=== PATIENT | male | born 1945 | race Caucasian/White ===

== ENCOUNTER 2020-02-16 12:32 | Inpatient (IN) | payer OTHER, MEDICARE ==
[~2020-02-16] VITALS: Ht 188 cm; Wt 74.4 kg
[2020-02-16] VITALS (16 sets, daily range): BP systolic 113–166; BP diastolic 40–72
--- NOTE | ~2020-02-16 | HC ---
[facility] [place] [address] CONSULTATION Name: ELISE GRANT Room #: 203-P ADM IN M.R.#: [id number] Admission: 02/16/20 Attend Phys: Mike Mendieta MD Discharge: Date of : 45 Report #: [id number] THIS REPORT FOR: cc: [facility] - Family physician unknown FAM - Family physician unknown Michele Stubbs MD ~ CC: Mike Mendieta [facility] unknown Westley Moran Carol DATE OF SERVICE: 02/20/2020 HISTORY OF PRESENT ILLNESS: The patient is a 74-year-old male who was admitted with dysarthria, drooling, noted to have right-sided weakness. He underwent TPA. CT perfusion study did show evidence of a left frontoparietal acute CVA and he has been diagnosed with a large left hemispheric CVA. He has dense right hemiplegia and almost complete expressive aphasia. Neurology has been closely involved. He also was noted to have a non-ST elevation myocardial infarction with elevated troponin with Cardiology involved. He has been seen by speech therapy and has significant dysphagia and is on pureed diet with nectar thickened liquids. We are seeing him in rehabilitation medicine consultation. PAST MEDICAL HISTORY: History of sick sinus syndrome, status post permanent pacemaker, aortic stenosis, hypertension, hyperlipidemia, diabetes mellitus type 2. MEDICATIONS: Please see the MAR. ALLERGIES: No known drug allergies. SOCIAL HISTORY: Lives in a house with spouse, 2 steps in, did not utilize gait aids. is retired. There is family in the area. Bedroom is on the ground floor. REVIEW OF SYSTEMS: Somewhat difficult with his severe aphasia. No obvious chest pain, shortness of breath or abdominal discomfort. PHYSICAL EXAMINATION: GENERAL: This is a 74-year-old white male in no obvious distress. He has severe expressive aphasia, it appears to be more involved with expressive and he has better receptive. He does have nasal prong O2 in place, currently 4 liters. He has right facial droop. He has definite left gaze preference and was unable to look to the right past midline. He is able to follow some basic 1 step commands. He could give me a thumbs up with his left hand. He was able to shake hands with his left hand and he moved his left leg to command when I [facility] [address] [place] [address] CONSULTATION Name: ELISE GRANT Room #: 203-P [facility] IN M.R.#: [id number] Admission: 02/16/20 Attend Phys: Mike Mendieta MD Discharge: Date of : 45 Report #: [id number]. Appears to have functional range of motion and strength to the left upper and left lower extremity without obvious focal weakness. Right upper extremity reveals severe dense flaccid plegia. Right arm is currently elevated on a pillow. Right lower extremity dense plegia. Tone is decreased. ASSESSMENT: This is a 74-year-old white male with the following problems: 1. Large left hemispheric cerebrovascular accident with dense right flaccid hemiplegia. 2. Severe expressive greater than receptive aphasia. 3. Significant dysphagia, on pureed diet with nectar thickened liquids. 4. Sick sinus syndrome, status post permanent pacemaker. 5. Aortic stenosis. 6. Hypertension. 7. Hyperlipidemia. PLAN: Therapies are evaluating. We will need to see how he does in his therapies and see what his tolerance level is and go from there. He appears to be motivated to try in therapies and his is supportive and at the bedside. We will be glad to follow along with you regarding his rehab therapy needs. By: 1321 2348 Michele Stubbs MD /COLLIN
--- NOTE | ~2020-02-16 | EKG ---
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 : 1945 Requested By: Brii Sherman Order Number: [id number] MD: Measurements Intervals [place] Rate: 91 P: 71 MN: 166 QRS: -108 QRSD: 149 T: 75 QT: 391 QTc: 482 Interpretive Statements Sinus rhythm Right bundle branch block Probable inferior infarct, old Probable lateral infarct, old Compared to ECG 02/16/2020 12:53:45 Atrial-paced complex(es) or rhythm no longer present Inferior Q waves no longer present Q waves no longer present Myocardial infarct finding still present [email or web address] By: 4 4 Epiphany Epiphany, /[place]
--- NOTE | ~2020-02-16 | HC ---
[facility] [place] [address] CONSULTATION Name: ELISE GRANT Room #: 203-P [facility] IN M.R.#: [id number] Admission: 02/16/20 Attend Phys: Mike Mendieta MD Discharge: Date of : 45 Report #: [id number] THIS REPORT FOR: cc: [facility] - Family physician unknown [facility] - Family physician unknown Mila Rose MD ~ CC: Mike Mendieta [facility] unknown Westley Jung Dean Carol DATE OF SERVICE: 02/17/2020 ENDOCRINE CONSULTATION NOTE CONSULTING PHYSICIAN: Dr. Mendieta. REASON FOR CONSULTATION: Uncontrolled type 1 diabetes mellitus. HISTORY OF PRESENT ILLNESS: This is a 74-year-old male patient whose medical background is significantly noted for type 1 diabetes mellitus diagnosed over 60 years ago as well as CAD with a history of MA and CABG. The patient was at his usual state of health until the morning of his day of admission when he was noted to start drooling and then became aphasic. Shortly thereafter, the patient was brought to the ER by EMS where he developed right hemiparesis and expressive aphasia. Further investigation revealed evidence of a left hemispheric CVA and the patient received tPA therapy. However, further assessment showed that his CVA had expanded significantly and is very large at this point in time. Again, the patient has had a longstanding history of type 1 diabetes mellitus and has been treated with a [employer] insulin pump for many years as well as utilized [facility] continuous glucose monitor. The patient is unable to communicate with me due to the issue of aphasia and his was unable to provide specific insulin pump settings. She did indicate that the patient would have widely fluctuating blood glucose values between 40 and 200 mg/dL and that his most recent hemoglobin A1c was likely between 7 and 8%. However, it does not appear that the patient suffered any major hypoglycemic episodes or neuroglycopenia over the past few months at least. The patient is reported to have a history of cataract, but not diabetic retinopathy. Also, he has chronic kidney disease and diabetic peripheral neuropathy for which he uses gabapentin. Again, the patient is known to have a significant cardiac history and has undergone a CABG several years ago due to that reason. [address] [address] CONSULTATION Name: ELISE GRANT Room #: 203-P [facility] IN M.R.#: [id number] Admission: 02/16/20 Attend Phys: Mike Mendieta MD Discharge: Date of : 45 Report #: [id number] REVIEW OF SYSTEMS: CONSTITUTIONAL: No reported issues with fatigue, tiredness, fever, chills or body weight changes. HEENT: No reported issues with sore throat, sinus pain or ear drainage. PULMONARY: Negative for shortness of breath, cough or hemoptysis. CARDIAC: Negative for chest pain, palpitations, syncope or presyncope. GASTROINTESTINAL: Negative for abdominal pain, nausea, vomiting or changes in bowel movement frequency. NEUROLOGIC: Noted for right facial droop, right-sided weakness, expressive aphasia. No seizure activity or loss of consciousness. DERMATOLOGIC: Negative for rash, ulceration, discoloration or other major abnormalities. Otherwise, his review of systems is noncontributory other than those mentioned in the HPI. PAST MEDICAL HISTORY: 1. Type 1 diabetes mellitus diagnosed over 60 years. 2. Peripheral diabetic neuropathy. 3. Cataract. 4. Chronic kidney disease. 5. Hypertension. OUTPATIENT MEDICATIONS: The patient utilizes fast-acting insulin via his pump, uses gabapentin at an unknown dose. The patient's was unable to provide his medications in detail, otherwise. ALLERGIES: No known drug allergies. FAMILY HISTORY: Noncontributory. SOCIAL HISTORY: No reports of alcohol or tobacco use. The patient has 2 daughters. PHYSICAL EXAMINATION: GENERAL: male patient who is not in apparent pain or distress, but appears a bit agitated. VITAL SIGNS: Blood pressure is 122/50 mmHg, heart rate is 78 beats per minute, respirations 25 per minute, temperature is 38.4 degrees Celsius. CONSTITUTIONAL: The patient is lying supine in bed, appears a bit agitated, not in apparent pain, though. HEENT: Anicteric sclerae. Intact extraocular motions. NECK: Supple, without JVD, carotid bruits or lymphadenopathy. No thyromegaly. CHEST: Noted for moderate air entry bilaterally with scattered rales. [place] [address] CONSULTATION Name: ELISE GRANT Room #: 203-P ADM IN M.R.#: [id number] Admission: 02/16/20 Attend Phys: Mike Mendieta MD Discharge: Date of : 45 Report #: [id number] HEART: Regular rate and rhythm without murmurs or gallops. ABDOMEN: Soft, lax. No guarding. Active bowel sounds. EXTREMITIES: Lower extremity exam is negative for edema. NEUROLOGIC: Awake, alert, thrashing in bed, agitated, periodically attempts to sit up. He is immobile in the right upper extremity and lower extremity. PSYCHIATRIC: Not interactive, nonverbal. LABORATORY RESULTS: Blood glucose on arrival was 161, then moved to a high of 329 and then 301 mg/dL prior to this dictation. Sodium 135, potassium 5.1, chloride 101, CO2 of 19, anion gap 15, BUN 34, creatinine 1.4, yesterday was 1.1. AST 33, total bilirubin 0.5, calcium 9.1, magnesium 2.1, alkaline phosphatase 102, ALT 47, total protein 6.9, albumin 3.8, EGFR 50. Troponin 14.19. Total cholesterol 114, triglycerides 72, HDL 51, LDL 49. INR 1.0. White blood count 14.1, hemoglobin 12.8, hematocrit 39.3, platelets 164. TSH 1.064. Hemoglobin A1c was ordered and is pending. ASSESSMENT AND PLAN: 1. Type 1 diabetes mellitus. As noted above, the patient has a longstanding history of type 1 diabetes mellitus that is treated with continuous insulin delivery via insulin pump. Naturally, given the patient's current neurological state, he is unable to operate an insulin pump and therefore, this will be discontinued. Unfortunately, the usual insulin pump settings are not available to us at this point in time and therefore, I will initiate basal therapy utilizing the patient's weight of about 180 pounds and estimating basal insulin needs at 20 units. This will be offered in the form of Lantus insulin 10 units b.i.d. This will also be supported by Humalog supplemental scale low intensity to help the patient maintain blood glucose control between 140 and 180 mg/dL. Once his nutritional needs are assessed and a form of feeding is initiated, those nutritional needs will be calculated as well. Blood glucose monitoring will commence a.c. and at bedtime. 2. Cerebrovascular accident. As noted above, the patient has suffered a major CVA with a large left hemispheric CVA, which is felt to predict a severely compromised life quality by the Neurology service. Further management to followup is as per the Neurology Service. 3. Cardiovascular disease, coronary artery disease. The patient has significant history of coronary artery disease and has had a CABG done a few years ago. His troponin is significantly elevated. Cardiology is consulted for further evaluation. I certainly appreciate this consultation by Dr. Mendieta. By: 1337 1725 Mila Rose MD /nt
[2020-02-16 12:50] LABS: ABSOLUTE NEUTROPHILS 6.2 thou/uL (1.4-8.2); BASOPHILS 0.6 % (0.0-2.0); EOSINOPHILS 1.9 % (0.0-3.0); HEMATOCRIT 39.6 % (42.0-52.0); HEMOGLOBIN 13.2 gm/dL (14.0-18.0); LYMPHOCYTES 16.2 % (24.0-44.0); MCHC 33.2 g/dL (28.0-37.0); MCV 96.3 fL (80.0-100.0); MONOCYTES 9.3 % (1.0-8.0); PLATELET COUNT 168 thou/uL (150-400); RBC 4.12 mil/uL (4.50-6.00); RDW 15.4 % (10.5-14.5); WBC 8.6 thou/uL (4.0-11.0)
[2020-02-16 13:02] LABS: APTT 28.1 Seconds (24.5-32.8); PROTIME 10.7 Seconds (9.3-11.4)
[2020-02-16 13:37] LABS: ANION GAP 11 mmol/L (7-16); BUN 28 mg/dL (7-18); CALCIUM 9.3 mg/dL (8.5-10.1); CHLORIDE 104 mmol/L (98-107); CO2 24 mmol/L (21-32); CREATININE 1.1 mg/dL (0.7-1.3); GLUCOSE 130 mg/dL (74-106); POTASSIUM 4.9 mmol/L (3.5-5.1); SODIUM 139 mmol/L (136-145)
[2020-02-16 13:43] LABS: ALBUMIN 3.8 g/dL (3.4-5.0); MAGNESIUM 2.1 mg/dL (1.8-2.4); SGOT 33 U/L (15-37); SGPT 47 U/L (30-65); TOTAL BILIRUBIN 0.5 mg/dL (0.2-1.0); TOTAL PROTEIN 6.9 g/dL (6.4-8.2)
[2020-02-16 14:03] LABS: TROPONIN-I 7.72 ng/mL (<0.06)
[2020-02-16 14:13] LABS: URINE BILIRUBIN NEGATIVE (Negative); URINE BLOOD NEGATIVE (Negative); URINE CLARITY CLEAR; URINE COLOR YELLOW; URINE GLUCOSE-RANDOM* NEGATIVE (Negative); URINE KETONES NEGATIVE (Negative); URINE LEUKOCYTES-REFLEX NEGATIVE (Negative); URINE NITRITE-REFLEX NEGATIVE (Negative); URINE PROTEIN (DIPSTICK) NEGATIVE (Negative); URINE SPECIFIC GRAVITY 1.015 (1.005-1.035); URINE UROBILINOGEN 0.2 E.U./dl (0.2-1.0)
[2020-02-16 14:28] LABS: AMP/METHAMP Negative (Negative); BARBITURATES Negative (Negative); BENZODIAZEPINES Negative (Negative); COCAINE Negative (Negative); METHADONE Negative (Negative); OPIATES Negative (Negative); PCP Negative (Negative)
--- NOTE | 2020-02-16 15:35 | 2DMMODE ---
[address] [address] 2 D/M-MODE ECHOCARDIOGRAM Name: ELISE GRANT Room #: REG M.Roberta.#: [id number] Admission: 02/16/20 Attend Phys: Discharge: Date of : 45 Report #: [id number] THIS REPORT FOR: cc: FAM - Family physician unknown FAM - Family physician unknown Westley Jung MD [facility] ~ APPROVED REPORT Study performed: 02/16/2020 14:28:59 EXAM: Comprehensive 2D, Doppler, and color-flow Echocardiogram Patient Location: Room #: 4 Status: stat BSA: 2.09 HR: 74 bpm BP: 162/67 mmHg Rhythm: Pacemaker Other Information Study Quality: Adequate Indications Aortic Valve Disease Mitral Valve Disease CVA/TIA Hypertension/HDD Echo Enhancing Agent Indication: Rule out Shunt Agent(s) / Amount(s) Used: Agitated Saline 7 cc 2D Dimensions IVC: 20.00 mm Volumes Left Atrial Volume (Systole) LA ESV Index: 35.00 mL/m2 Tricuspid Valve PA Pressure: 65.00 mmHg Left Ventricle The left ventricle is normal size. There is MILD hypokinesis in the [address] [address] 2 D/M-MODE ECHOCARDIOGRAM Name: ELISE GRANT Room #: REG TY Mai#: [id number] Admission: 02/16/20 Attend Phys: Discharge: Date of : 45 Report #: [id number] inferior wall. There is normal left ventricular wall thickness. There is normal left ventricular wall thickness. The left ventricular ejection fraction is within the normal range. LVEF is 50%. The left ventricular diastolic function is abnormal. Right Ventricle The right ventricle is normal size. The right ventricular systolic function is normal. Pacemaker lead is present in the right ventricle. Atria Left atrium is dilated. Interatrial septum is intact without evidence of ASD or PFO. Right atrium is at the upper limits of normal. Pacemaker lead is present in the right atrium. Aortic Valve Bioprosthetic aortic valve is present. Trace aortic regurgitation. There is no aortic valvular stenosis. Mitral Valve The mitral valve is normal in structure. Mild to moderate mitral regurgitation. No evidence of mitral valve stenosis. Tricuspid Valve The tricuspid valve is normal in structure. There is mild tricuspid regurgitation. Estimated PAP 65 mmHg. There is moderate pulmonary hypertension. Pulmonic Valve The pulmonary valve is normal in structure. Trace pulmonic regurgitation. Great Vessels The aortic root is normal in size. IVC is dilated and collapses >50% with inspiration. Pericardium There is no pericardial effusion. <Conclusion> The left ventricle is normal size. There is MILD hypokinesis in the inferior wall. LVEF is 50%. The left ventricular diastolic function is abnormal. The right ventricle is normal size. Pacemaker lead is present in the right ventricle. Left atrium is dilated. [facility] [address] [place] [address] 2 D/M-MODE ECHOCARDIOGRAM Name: ELISE GRANT Room #: REG TY FraserYolie#: [id number] Admission: 02/16/20 Attend Phys: Discharge: Date of : 45 Report #: [id number] Right atrium is at the upper limits of normal. Pacemaker lead is present in the right atrium. Bioprosthetic aortic valve is present. Trace aortic regurgitation. Mild to moderate mitral regurgitation. There is mild tricuspid regurgitation. Estimated PAP 65 mmHg. There is moderate pulmonary hypertension. The aortic root is normal in size. There is no pericardial effusion. <ELECTRONICALLY SIGNED> By: Westley Jung MD, FACC 02/16/20 1535 1535 1535 Westley Jung MD, FACC /INF
[2020-02-16 16:04] LABS: CHOLESTEROL 114 mg/dL (<200); HDL CHOLESTEROL 51 mg/dL (>40); LDL CHOLESTEROL 49 mg/dL (<100); TC:HDL 2.2 Ratio (Not establshd); TRIGLYCERIDE 72 mg/dL (<150); VLDL 14 mg/dL (<40)
--- NOTE | 2020-02-16 20:16 | NUR ---
1739-ADMITTED FROM E.R. VIA STRETCHER. DTR SAW PT BRIEFLY & THEN LEFT. WAS NOT PRESENT.--VW
[2020-02-17] VITALS (23 sets, daily range): BP systolic 106–147; BP diastolic 46–66
--- NOTE | 2020-02-17 06:41 | NUR ---
At the start of the shift, pt's NIH score was 5, he was alert, able to nod to yes/no questions, and move all extremities. By midnight, he hadn't rested well, his right side wasn't as strong and at approx 0200, pt became tachycardic, other vitals were WNL. Dr Medina was in to see pt, and it was then noted that pt's right side was flaccid. Pt was taken to CT for follow up scan and it was noted that he stroke had progressed. The family was notified by the doctor, to consider changing code status and making him comfort care. Family will be here at 0900 to discuss this with Dr. Medina. Pt has been VERY restless, moving his left side, putting that left leg on the siderail. He remains aphasic, and is not following commands as well as he had. A nickerson was placed, with 2 liters of urine voided, lasix was given and his lung sounds did improve.
[2020-02-17 06:52] LABS: HEMATOCRIT 39.3 % (42.0-52.0); HEMOGLOBIN 12.8 gm/dL (14.0-18.0); MCH 32.1 pg (26.0-34.0); MCHC 32.5 g/dL (28.0-37.0); MCV 98.7 fL (80.0-100.0); RBC 3.98 mil/uL (4.50-6.00); RDW 15.2 % (10.5-14.5); WBC 14.1 thou/uL (4.0-11.0)
[2020-02-17 07:04] LABS: CALCIUM 9.1 mg/dL (8.5-10.1); CREATININE 1.4 mg/dL (0.7-1.3); POTASSIUM 5.1 mmol/L (3.5-5.1)
--- NOTE | 2020-02-17 08:00 | NUR ---
ASSUMED CARE FROM JORDI FARFAN. STROKE SCALE 18, DOES NOT RECONGNIZE RIGHT SIDE OF BODY, APHASIC. RIGHT SIDE IS STIFF AND RIGID WHEN TURNING. INCONTIENT OF STOOL. MOVED TO DIFFERNT BED MATTRESS WILL NOT INFLATE.
--- NOTE | 2020-02-17 09:45 | NUR ---
DR CHRISTIANSON IN TO SPEAK WITH CONCERNING THE EXTENT OF THE PATIENT'S STROKE AFTER SEEING THE PATIENT AND REVIEWING THE CT RESULTS.
--- NOTE | 2020-02-17 09:50 | NUR ---
chart review. cm unable to visit with pt rt condition, at bedside side and tearful. report from bedside nurse. pt came in through ed with code stroke. pt was home alone and he call his but could not speak, she returned home to check on him and called ems. neuro in visiting with at bedside. will cont following as needed for dc needs. per chart pt independent prior to hospital. no anticpated dc over weekend.
--- NOTE | 2020-02-17 10:30 | NUR ---
DR LOZA IN TO SPEAK WITH CONCERNING POC AND POTENTIAL OUTCOMES. PATIENT CONTINUES TO NEGLECT THE RIGHT SIDE, EXPRESSIVE APHASIA, WILL FOLLOW SIMPLE COMMANDS.
--- NOTE | 2020-02-17 14:26 | NUR ---
monitoring coordinator to see patient and family. pt awake however aphasic and right sided flaccidity noted. patient doesn't follow commands and appears restless. tearful at bedside and questioning why the medication (tPa) didn't work. I explained that even though it is the only FDA approved medication for stroke sometimes it is not effective. I also provided a stroke booklet explaining the different types of strokes and risk factors even though this patient has a poor prognosis reported. I will continue to follow and offer support to the family.
--- NOTE | 2020-02-17 14:43 | NUR ---
DR INTERIANO NOTIFIED THAT THE PATIENT'S WANTS TO RESEND THE DNR AFTER SPEAKING WITH THE DAUGHTERS.
--- NOTE | 2020-02-17 16:10 | EKG ---
[facility] [place] [address] ELECTROCARDIOGRAM REPORT Name: EILSE GRANT Room #: 251-P ADM IN M.R.#: [id number] Admission: 02/16/20 Attend Phys: Mike Mendieta MD Discharge: Date of : 45 Report #: [id number] THIS REPORT FOR: cc: FAM - Family physician unknown FAM - Family physician unknown Jeremy Humphreys MD [facility] ~ THIS REPORT FOR: //name// [facility] ED Test Date: 2020-02-16 Test Time: 12:53:45 Pat Name: ELISE GRANT Department: Room: Formerly named [facility] Gender: M Community 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 Director: [place] : 1945 Requested By: Mina De La Torre Order Number: [id number] MD: Jeremy Humphreys Measurements Intervals [place] Rate: 64 P: 62 [place]: 194 QRS: -103 QRSD: 159 T: 66 QT: 438 QTc: 452 Interpretive Statements Sinus rhythm with ventricular pacing No previous ECG available for comparison Electronically Signed On 02-17-2020 16:09:58 CDT by Jeremy Humphreys [email or web address] <ELECTRONICALLY SIGNED> By: Jeremy Humphreys MD, FAC 02/17/20 1609 1253 52 Jeremy Humphreys MD, [facility] /EPI
--- NOTE | 2020-02-17 16:29 | EKG ---
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 : 1945 Requested By: Westley Jung Order Number: [id number] MD: Jeremy Humphreys Measurements Intervals [place] Rate: 91 P: 71 [place]: 166 QRS: -108 QRSD: 149 T: 75 QT: 391 QTc: 482 Interpretive Statements Sinus rhythm with ventricular pacing Right bundle branch block Compared to ECG 02/16/2020 12:53:45 No significant change was found Electronically Signed On 02-17-2020 16:28:49 CDT by Jeremy Humphreys [email or web address] <ELECTRONICALLY SIGNED> By: Jeremy Humphreys MD, [facility] 02/17/20 1628 4 4 Jeremy Humphreys MD, [facility] /EPI
--- NOTE | 2020-02-17 17:00 | NUR ---
INFORMED OF NEW ROOM NUMBER OF 203. SHE TOOK HIS BAG OF BELONGINGS WITH HER.
--- NOTE | 2020-02-17 17:04 | NUR ---
PATIENT RESTLESS, SWINGING LEFT LEG OUT OF THE BED, PULLING OFF O2. ATTEMPT TO REORIENT. APPEARS TO SLEEP BEST WITH FEET DOWN HE SPLEEPS SITTING UP ON THE SOFA AT HOME. MONITOR SHOWING SR WITH BBB AND OCC PVC'S AND INTEMITTENT A PACED RHYTHM. VSS. O2 SAT IN THE LOWER TO MID 90'S ON 3L/NC. RESP LESS LABORED. ADEQUATE URINE OUTPUT PER MCCLELLAN.
--- NOTE | 2020-02-17 18:58 | NUR ---
PATIENT TRANSFERRED TO 203 PER BED WITH BELONGINGS AND O2. REPORT GIVEN TO JULIETA FARFAN. INSULIN GIVEN AC DINNER.
--- NOTE | 2020-02-17 19:57 | NUR ---
PATIENT TRANSFERRED TO [address] [place] [address] W/C WITH BELONGINGS. REPORT GIVEN TO LORIE FARFAN.
--- NOTE | 2020-02-17 22:59 | HC ---
[facility] [place] [address] CONSULTATION Name: ELISE GRANT Room #: 203-P ADM IN M.R.#: [id number] Admission: 02/16/20 Attend Phys: Mike Mendieta MD Discharge: Date of : 45 Report #: [id number] THIS REPORT FOR: cc: FAM - Family physician unknown FAM - Family physician unknown Dean Medina MD ~ CC: Mike Mendieta [facility] unknown Westley Jung Dean Medina DATE OF SERVICE: 02/16/2020 HISTORY OF PRESENT ILLNESS: This is a 74-year-old male patient who was evaluated by me for the possibility of seizure. I got a first call from Dr. De La Torre from the Emergency Room physician that the patient was aphasic. His last known well was about 9:45. Around 12:20, he called his and she was not able to understand him. The patient came to the hospital in TPA window. I asked the Emergency Room physician, Dr. De La Torre to start the TPA and then quickly take him down for CT stroke protocol. That was done. Dr. Ledbetter called Dr. De La Torre and indicated that there is no retrievable clot. I asked the radiologist, Dr. Ledbetter to review the films with me to see if there is any retrievable clot. He indicated that there is no retrievable thrombus. His official report indicated the same thing that CT ute of [place] revealed only normal variation. The patient did have penumbra. I was concerned with this patient because the patient has pretty marked aphasia. He is neither able to write and nor able to speak anything. His comprehension looks intact. This caused pretty significant compromise of the quality of the life and therefore I wanted to see if there is anything else which can be done. I wanted to do an MRI of the brain and MRA of the head. This is to look at the vasculature by some alternate testing. Unfortunately, this patient has a pacemaker. They do not know if the pacemaker was compatible with MRI or not. We tried to find out, but looks like pacemaker is compatible, but MRI indicated that the earliest they can do MRI by their protocol is tomorrow. This is because they have to contact their boat loader helper and they have to get the company rep here. This is the protocol they need to follow. Therefore, the earliest MRI and MRA can be done will be tomorrow. I discussed with them that will not do any good because the window to treat him will pass by that time. They indicated that there is no way that MRI and MRA can be done today. Therefore, I got the patient's CT angiogram reviewed by other radiologist, Dr. Owen and her opinion was same that there is no retrievable thrombus. This patient has dense aphasia and as I mentioned I am very concerned with it and therefore I called [facility] stroke team. I uploaded the images to the cloud. I asked them to review it and see if they think there is any retrievable thrombus. They also said the same thing that there is no retrievable thrombus. In these circumstances, nothing much can be done. I talked to Dr. Jung, his boat loader helper and his troponin is high. He is going [address] [place] [address] CONSULTATION Name: ELISE GRANT Room #: 203-P ADM IN M.R.#: [id number] Admission: 02/16/20 Attend Phys: Mike Mendieta MD Discharge: Date of : 45 Report #: [id number] to work him up. I discussed with him that most likely it is an embolic event. So, we will await workup. The patient received the full dose of TPA. We gave him some fluid. Unfortunately, he has no reactive hypertension, but after giving him fluid his blood pressure has gone up to about 168, which is better than before. We would like to keep his blood pressure high until it goes to about 180, then we need to cut back the fluid or give him some medications. Dr. Jung does not believe that there is any problem with the fluid in this patient, which can throw him in congestive heart failure. REVIEW OF SYSTEMS: Negative for any stroke and the patient was pretty functional before. He does have pretty significant cardiac issues in the past. He has a pacemaker. 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 This patient as per Cardiology record had 1 episode of atrial fibrillation in September. The patient is not anticoagulated according to the family and therefore he was given TPA. He is on aspirin 81 mg p.o. daily. PAST MEDICAL HISTORY: Negative for stroke. SOCIAL HISTORY: He has a prior history of smoking, but has not smoked any for a while. PHYSICAL EXAMINATION: The patient's examination indicate that he can follow simple commands, but he has no speech output. He could not write. I could not tell about hemianopsia in this patient, but the patient has a right facial palsy. His right side is weaker than the left. I cannot tell about the position sense or sensation because of the aphasia. I could not look at the fundus. Clinically, he does not appear to be in atrial fibrillation. His blood pressure now is 168/71, respirations 24, pulse is 69. His troponin is 7. IMPRESSION: Left hemispheric cerebrovascular accident. It is concerning that the patient has pretty significant aphasia and aphasia is the one, which cause significant disability and frustration and that is why I was very concerned. We gave him TPA, but I got 3 opinions as summarized above to see if any clot retrieval or anything else can be done and they all indicated that there is no clot retrieval, which can be done or anything else can be done except for systemic management. We should follow the TPA protocol. He should not receive any aspirin or Plavix for 24 hours. After that, we will await the cardiology evaluation. If Cardiology feels that he needs to be anticoagulated, then he can be anticoagulated. We might be able to do MRI tomorrow, but that will not change any treatment. We may even repeat the CT scan tomorrow rather than MRI because I am reasonably confident that the stroke will show up on the CT and it is unlikely to change any treatment. [address] [address] CONSULTATION Name: ELISE GRANT Room #: 203-P ADM IN M.R.#: [id number] Admission: 02/16/20 Attend Phys: Mike Mendieta MD Discharge: Date of : 45 Report #: [id number] I called the patient's son-in-law whom I know, Dr. Clinton. He is a family practitioner. I have known him for a long time. I updated him on the presentation history and what we have done so far. We do not have any neurosurgical backup today and I discussed that with him and I also discussed all their options with him as well as the family including if they want to stay in this hospital or want to go to another hospital or any other option or opinion they want to do. The family wants to keep the patient here and basically follow the above plan, which I summarized above. However, I discussed with them extensively all I have done so far including getting [address] angio as summarized and given them all their options including going to the hospital of their choice and physician of their choice and they would like to follow the above plan and keep him here. Ultimately, I think we need to see what we can do to prevent another stroke from happening. That will depend upon cardiology evaluation. I will do another CT scan after 24 hours. If Cardiology want him to start on anticoagulation it probably can be done, but only after an interval. That interval will vary from 3-7 days depending upon the extent of the stroke. If he does not go on anticoagulation he will be on dual antiplatelet therapy. We will also await the workup of high troponin. More than 70 minutes of time was spent taking care of this patient today and majority of that time was spent counseling the family and coordinating his care and talking to multiple health resident care technician as summarized. Thank you very much. <ELECTRONICALLY SIGNED> By: Dean Medina MD 02/17/20 2259 [id number] Dean Medina MD /nt
[2020-02-17 23:06] LABS: GLYCOHEMOGLOBIN (HGB A1C) 7.9 % (4.8-5.6)
[2020-02-18 00:23] VITALS: BP 115/61
--- NOTE | 2020-02-18 03:57 | NUR ---
ASSUMED PT CARE 1900. POST CVA, AND NON-RESPONSIVE. OVERNIGHT, PT BECOMES INCREASING AGITATED AND RESTLESS. MORPHINE ADMINISTERED TO PT WHICH DOSE SEEM TO HELP WITH AGITATION AND RESTLESSNESS. ASSESSMENT COMPLETED AND DOCUMENTED. FALL PRECAUTION IN PLACE. CONTINUE TO MONITOR PT. NO FURTHER NEEDS AT THIS TIME
[2020-02-18 04:00] VITALS: BP 146/56
[2020-02-18 07:25] VITALS: BP 151/72
[2020-02-18 07:51] LABS: ABSOLUTE NEUTROPHILS 11.3 thou/uL (1.4-8.2); BASOPHILS 0.2 % (0.0-2.0); HEMOGLOBIN 12.2 gm/dL (14.0-18.0); LYMPHOCYTES 8.5 % (24.0-44.0); MCH 31.5 pg (26.0-34.0); MCV 98.4 fL (80.0-100.0); MONOCYTES 11.1 % (1.0-8.0); PLATELET COUNT 142 thou/uL (150-400); POLYS 80.2 % (36.0-66.0); RBC 3.86 mil/uL (4.50-6.00); RDW 15.2 % (10.5-14.5); WBC 14.1 thou/uL (4.0-11.0)
[2020-02-18 08:06] LABS: CALCIUM 8.8 mg/dL (8.5-10.1); CREATININE 1.3 mg/dL (0.7-1.3); MAGNESIUM 2.2 mg/dL (1.8-2.4); PHOSPHORUS 3.3 mg/dL (2.5-4.9)
[2020-02-18 08:20] VITALS: BP 151/72
[2020-02-18 12:00] VITALS: BP 151/72
--- NOTE | 2020-02-18 13:05 | NUR ---
CHART INDICATES THAT Pt IS NOW ON PALLIATIVE/COMFORT CARE. THEREFORE, O.T. EVALUATION IN ACUTE CARE SETTING IS NOT APPROPRIATE.
[2020-02-18 16:00] VITALS: BP 151/72
--- NOTE | 2020-02-18 18:53 | NUR ---
PT CARE ASSUMED AT 0700. ASSESSMENTS CHATED. MEDICATIONS CHARTED. PT PLACED ON DNR AND COMFORT CARE. MULTIPLE FAMILY MEMBERS ALLOWED TO VISIT PER ADMINISTRATION; DR ELLIS AWARE.
[2020-02-19 01:30] VITALS: BP 139/63
[2020-02-19 05:14] LABS: HEMOGLOBIN 12.2 gm/dL (14.0-18.0); MCH 31.3 pg (26.0-34.0); RBC 3.88 mil/uL (4.50-6.00); RDW 15.1 % (10.5-14.5); WBC 12.9 thou/uL (4.0-11.0)
[2020-02-19 05:15] LABS: CALCIUM 8.8 mg/dL (8.5-10.1); CREATININE 1.1 mg/dL (0.7-1.3); POTASSIUM 4.5 mmol/L (3.5-5.1)
--- NOTE | 2020-02-19 06:19 | NUR ---
ASSUME CARE 1900. VITALS STABLE. PT EXTREMELY APHASIC BUT FOLLOWS INSTRUCTIONS. SQUEEZES MY FINGERS,RAISES HIS LEFT LEG, TRIES TO TURN, MAKE A THUMBS UP ON COMMAND. PT USES LEFT HAND TO HOLD ON TO NURSE, AND SEEMS TO WANT TO COMMUNICATE NEEDS BUT CANNOT. DIFFICULT TO ASSESS LOC BUT CAN STATE THAT PT SEEMS TO UNDERSTAND AND DOES FOLLOW COMMANDS. ASSESSMENT CHARTED. PROGRESSING WITH POC. PLAN IS CONFORT CARE FOR PT PER FAMILY. WILL CONTINUE TO MONITOR AND FOLLOW WITH POC
[2020-02-19 07:25] VITALS: BP 149/74
[2020-02-19 07:45] VITALS: BP 149/74
[2020-02-19 15:45] VITALS: BP 149/74
[2020-02-19 19:10] VITALS: BP 158/65
--- NOTE | 2020-02-19 19:11 | NUR ---
PT CARE ASSUMED AT 0700. ASSESSMENT CHARTED. MEDICATION CHARTED. PT OFF OF COMFORT CARE PER DR ROME. FAMILY WANTS FULL CARE. PT REMAINS ON DNR CODE STATUS FOR NOW. PT EATS BETTER OFF OF THE LEFT SIDE OF HIS MOUTH. PER DR LATRICIA DOMINGUEZ AT 5 UNITS AT 1715.
[2020-02-20 03:30] VITALS: BP 144/71
[2020-02-20 05:21] LABS: ALBUMIN 2.6 g/dL (3.4-5.0); CREATININE 1.1 mg/dL (0.7-1.3); MAGNESIUM 2.2 mg/dL (1.8-2.4); PHOSPHORUS 2.8 mg/dL (2.5-4.9); TOTAL BILIRUBIN 1.1 mg/dL (0.2-1.0); TOTAL PROTEIN 6.8 g/dL (6.4-8.2)
[2020-02-20 05:39] LABS: ABSOLUTE NEUTROPHILS 7.8 thou/uL (1.4-8.2); BASOPHILS 0.4 % (0.0-2.0); EOSINOPHILS 0.2 % (0.0-3.0); HEMOGLOBIN 12.1 gm/dL (14.0-18.0); LYMPHOCYTES 10.1 % (24.0-44.0); MCH 31.8 pg (26.0-34.0); MCHC 32.8 g/dL (28.0-37.0); MCV 97.1 fL (80.0-100.0); PLATELET COUNT 148 thou/uL (150-400); POLYS 80.3 % (36.0-66.0); RBC 3.81 mil/uL (4.50-6.00); RDW 15.3 % (10.5-14.5); WBC 9.7 thou/uL (4.0-11.0)
[2020-02-20 07:30] VITALS: BP 156/81
--- NOTE | 2020-02-20 08:37 | NUR ---
PT RESTING QUIETLY IN ROOM, USING CALL LIGHT TO TURN LIGHT ON AND OFF AND TV CONTROLS, R HEMIPARESIS, TURN NEEDED, NO C/O PAIN, REQUESTING FREQUENT LIQUIDS NECTAR THICK, IV INFUSING NS AT 50ML/HR, ABLE TO COMUNICATE BY SHAKING HEAD YES ABD NO, REPORT GIVEN TO NEXT SHIFT TO CON'T PPOC.
--- NOTE | 2020-02-20 10:02 | NUR ---
Patients face sheet not updated. Sp with in room. Copied insurance cards and rec address of home. Faxed to registration. tearful regarding patients disposition. Discussed post acute care. concerned patient will not tolerate 3 hours of theraoy for acute rehab and does not want skilled care. Casemgt following.
[2020-02-20 11:25] VITALS: BP 124/64
--- NOTE | 2020-02-20 13:42 | NUR ---
Assess due to low kary score of 7. Admit due to large CVA, aphasia, dysphagia. Requires modified solids and liquids per ST. Long hx DMI > 60yrs and had insulin pump. Endo following, dc'd off pump. Unknown wt hx. PO intake has been poor less than 50%. Already receives ensure pudding on puree trays, will add supplement of magic cup or ensure pudding each meal. Low nutrition risk at this time with interventions in place, but need to continue to follow ability to take oral intake adequately given large CVA
[2020-02-20 15:40] VITALS: BP 136/73
--- NOTE | 2020-02-20 16:02 | NUR ---
[facility] CONSULT RECEIVED FOR Pt. Pt SEEN BY DR. STORY. Pt CAN ADMIT TO 5N REHAB WHEN MEDICALLY READY FOR D/C. THANK YOU FOR THIS REFERRAL.
--- NOTE | 2020-02-20 18:10 | NUR ---
RECEIVED PT'S CARE AROUND 0730; PT. ON BED; ALERT; AWAKE; DURING AM ASSESSMENT PT. DRINKING MILK WITH BY HIMSELF; EDUCATED ABOUT DRINKING SMALL SIPS; ALERT TO PERSON; NEURO ASSESSMENT PERFORMED; NO CHANGES; EDUCATED ABOUT USING TUMBS UP OR DOWN FOR YES OR NO; REMAINED; ABLE TO EAT BREAKFAST; TOLERATED WELL; MEDICATION CRUSH; EDUCATED ABOUT HAVING SMALL SIPS AT A TIME; ST NOTIFIED; BS ELEVATED; DR. IRVIN ON VACATION; HOSPITALIST NOTIFIED; NO NEW ORDERS; UP TO THE CHAIR WITH PT.; PER PT. REPORT PT. TOLERATED IT WELL; BACK TO BED CLOSE TO 1700 BY PT; AT THE BED SIDE; EDUCATED ABOUT VISITOR REGULAR POLICIES; NOT ON HOSPICE; ST. UNDERSTANDING; TURN FROM SIDE TO SIDE THROUGH THE DAY & AFTERNOON; GOOD APPETITE; PER DR. AB HELTON TO D/C MCCLELLAN; D/C MCCLELLAN AT 1515; AFTER TWO HOURS PT. TRYING TO VOID, NOT SUCCESFUL; BLADDER SCANNER SHOWED 112 ML; PHYSICIAN NOTIFIED; ORDERS ON PLACED; MONITORING; WILL PASS ON REPORT; ASSESSMENT CHARGED; FOLLOWING POC; WILL PASS ON REPORT;
[2020-02-20 21:40] VITALS: BP 170/90
[2020-02-21 00:15] VITALS: BP 141/78
[2020-02-21 02:44] VITALS: BP 151/79; BP 515/79
--- NOTE | 2020-02-21 06:40 | NUR ---
FREQUENT SOFT STOOLS THRU THE NOC NEEDED SEVERAL HEAD TO TOE BATHS AND CLEANED UP ALSO INCONT OF URINE, MAKES PT ANXIOUSE, AND SETS THE BED ALARM OFF, HR UP TO 130'S NOT SUSTAINED, 6L NC WHILE SLEEPING, VSS, REPOSITIONED AND OFFERED NECTAR THICK WATER FREQUENTLY, PT RESTING INBETWEEN BOUGHTS OF INCON'T, WILL CON'T TO MONITOR PER PPOC.
[2020-02-21 07:40] VITALS: BP 151/79
[2020-02-21 08:27] LABS: HEMATOCRIT 37.1 % (42.0-52.0); HEMOGLOBIN 12.2 gm/dL (14.0-18.0); MCH 32.3 pg (26.0-34.0); RBC 3.78 mil/uL (4.50-6.00); RDW 15.6 % (10.5-14.5)
[2020-02-21 08:33] LABS: CALCIUM 9.2 mg/dL (8.5-10.1); CREATININE 1.3 mg/dL (0.7-1.3); MAGNESIUM 2.2 mg/dL (1.8-2.4); POTASSIUM 4.2 mmol/L (3.5-5.1)
--- NOTE | 2020-02-21 08:56 | EKG ---
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 : 1945 Requested By: Brii Sherman Order Number: [id number] MD: Jeremy Humphreys Measurements Intervals [place] Rate: 110 P: 91 MA: 159 QRS: -148 QRSD: 145 T: 66 QT: 343 QTc: 465 Interpretive Statements Sinus tachycardia with ventricular pacing Right bundle branch block Compared to ECG 02/17/2020 08:15:01 No significant change was found Electronically Signed On 02-21-2020 8:56:33 CDT by Jeremy Humphreys [email or web address] <ELECTRONICALLY SIGNED> By: Jeremy Humphreys MD, [facility] 02/21/20 0856 9 Jeremy Humphreys MD, [facility] /EPI
--- NOTE | 2020-02-21 09:32 | 2DMMODE ---
[facility] Kayla Mart[address]nez [employer] [place] [address] 2 D/M-MODE ECHOCARDIOGRAM Name: ELISE GRANT Room #: 203-P ADM IN M.R.#: [id number] Admission: 02/16/20 Attend Phys: Mike Mendieta MD Discharge: Date of : 45 Report #: [id number] THIS REPORT FOR: cc: FAM - Family physician unknown FAM - Family physician unknown Moisés Sandoval MD ~ APPROVED REPORT Study performed: 02/21/2020 08:50:08 EXAM: Limited 2D, Doppler, and color-flow Echocardiogram Patient Location: Bedside Room #: 203 Status: routine BSA: 2.03 HR: 110 bpm BP: 151/79 mmHg Rhythm: Paced. frequent PVCs Other Information Study Quality: Adequate Technically limited study due to no patient cooperation, heavy breathing. Indications Limited follow up echo for EKG changes. NSTEMI, history of CABG, PPM, AVR. 2D Dimensions IVSd: 11.32 (7-11mm) LVDd: 52.97 mm PWd: 9.15 (7-11mm) LVDs: 47.17 (25-40mm) Tricuspid Valve TR Peak Mani.: 3.45 m/s RAP Estimate: 10.00 mmHg TR Peak Gr.: 47.66 mmHg PA Pressure: 58.00 mmHg Left Ventricle The left ventricle is normal size. Basilar inferior posterior hypokinesis at least moderate There is normal left ventricular wall thickness. Left ventricular systolic function is moderately decreased. LVEF is 40%. [facility] [address] [place] [address] 2 D/M-MODE ECHOCARDIOGRAM Name: ELISE GRANT Room #: 203-P ADM IN M.R.#: [id number] Admission: 02/16/20 Attend Phys: Mike Mendieta MD Discharge: Date of : 45 Report #: [id number] Right Ventricle The right ventricle is normal size. Aortic Valve Bioprosthetic aortic valve is present. Trace aortic regurgitation. Mitral Valve Echodensity at the base of the leaflets consistent with mitral annular calcifications Moderate to severe mitral regurgitation Tricuspid Valve Poorly visualized cannot comment Moderate to severe tricuspid regurgitation. Estimated PAP is 60mmHg. Great Vessels IVC is normal in size and collapses <50% with inspiration. Pericardium There is no pericardial effusion. <Conclusion> The left ventricle is normal size. Basilar inferior posterior hypokinesis at least moderate Bioprosthetic aortic valve is present. Trace aortic regurgitation. Echodensity at the base of the leaflets consistent with mitral annular calcifications Moderate to severe mitral regurgitation Poorly visualized cannot comment Moderate to severe tricuspid regurgitation. Estimated PAP is 60mmHg. There is no pericardial effusion. <ELECTRONICALLY SIGNED> By: Moisés Sandoval MD 02/21/20 0931 0931 0 Moisés Sandoval MD /INF
--- NOTE | 2020-02-21 11:15 | NUR ---
Patient accepted to 5N once stable. aware he is accepted to 5N and she is greatful. cont to follow.
[2020-02-21 11:25] VITALS: BP 142/75
--- NOTE | 2020-02-21 14:31 | NUR ---
MORE ALERT, INTERACTIVE. OBVIOUSLY FRUSTRATED WHEN ATTEMPTING TO SPEAK. INCONTINENT OF URINE, LARGE BM, CLEANED AND LINENS CHANGED. WORKING WITH PT, OT, AND ST. APPETITE BRISK. UP TO CHAIR FOR LUNCH, BACK TO BED NOW. AT BEDSIDE. CARDIAC CHANGES, TROPONIN 60, DR. CHRISTIANSON AWARE. SCHEDULED FOR CARDIAC CATH TOMORROW 02/21. SR WITH BBB PER TELE. FALL PRECAUTIONS IN PLACE. WILL CONTINUE TO FOLLOW CLOSELY.
[2020-02-21 15:50] VITALS: BP 140/72
--- NOTE | 2020-02-21 16:24 | NUR ---
PATIENT ACCEPTED FOR ADMISSION TO 5N/ACUTE REHAB. DRAUGHTSMAN VISITED WITH PATIENT'S REGARDING 5N/ACUTE REHAB EXPECTATIONS AND REQUIREMENTS. PATIENT'S IN AGREEMENT WITH PLAN FOR PATIENT TO ADMIT TO 5N WHEN MEDICALLY STABLE. BROCHURE WITH LIAISON'S CARD LEFT WITH . ANTICIPATE ADMISSION 02/22/20. THANK YOU FOR THIS REFERRAL.
[2020-02-21 19:27] VITALS: BP 151/82
[2020-02-22] VITALS (12 sets, daily range): BP systolic 128–149; BP diastolic 56–84
--- NOTE | 2020-02-22 05:17 | NUR ---
ASSESSED AT START OF SHIFT. PT RESTING IN BED. UNABLE TO VERBALIZE NEEDS DUE TO EXPRESSIVE APHASIA. OBEYS COMMAND AND USE OF YES OR NO. INCONTINET OF URINE AND CALLS TO USE URINAL. MEDS GIVEN CRUSHED IN THICK LIQUID. IV INTACT AND FLUIDS INFUSING. FALL PREC IN PLACE. RT SIDE WEAKNESS NOTED. FREQ ROUNDING DONE AND WILL. CONT TO MONITOR TILL EOS.
--- NOTE | 2020-02-22 10:33 | NUR ---
NO URINE OUTPUT WHEN OFFERED THE OPPORTUNITY, ABDOMEN IS ROUND AND SLIGHTLY DISTENDED. DECIDED TO DO A BLADDER SCAN TO ENSURE NOT RETENTION, GOT 360ML BACK ON SCREEN. WILL CALL MD FOR RETENTION ORDERS AND CONCERNS NOW AT THIS TIME. IN ROOM AND PT. FRUSTRATED OVERALL TRYING TO COMMUNICATE WITH STAFF BUT MAY BE A PAIN ISSUE RELATED TO HESITANCY..
--- NOTE | 2020-02-22 11:20 | NUR ---
INSERTED 15 NEW [place]ER CATHETER AT THIS TIME. NO RESISTANCE FELT AT ALL ON INSERTION-BALLOON INFLATED WITH 10ML. STERILE FIELD MAINATINED AT ALL TIMES, NO TRAUMA, NO BLEEDING WITH INSERTION OBSERVED. IMMEDIATLEY GOT 700ML BACK OF URINE, CONCETRATED IN COLOR, NO SEDIMENT NOTED ON RETURN IN COLLECTION BAG. LEG STRAP ANCHORED CATHTER FOR INSERTION SAFETY. VERBAL ORDER PER DR. LOZANO ON UNIT.
--- NOTE | 2020-02-22 11:23 | NUR ---
SENIOR MEDIA DIRECTOR CALLED AND SAID THEY WOULD BE UP SHORTLY TO GET HIM FOR PENDING PROCEDURE. AT BEDSIDE AND HELPING WITH PT. CARE THIS AM. PT. LOOKS MUCH MORE RELAXED POST CATHTER INSERTION, BLADDER AND STOMACH MUCH LESS DISTENDED NOW WELL.
--- NOTE | 2020-02-22 15:52 | NUR ---
14:22 PT. BACK FROM TRACK MOVING MACHINE OPERATOR AT THIS TIME. BLOOD PRESSURE IS 149/72, HR: 87. RR=16. SPO2=98 PERCENT ON 4 LITERS OXYGEN. IN REPORT LASIX WAS GIVEN IN THE TRACK MOVING MACHINE OPERATOR SO EXPECTING TO SEE LARGE AMOUNTS OF DRAINAGE OUT THIS AFTERNOON, INCREASED COMFORT AND EASE OF BREATHING. 12 [place] CATHTER MCCLELLAN WAS INSERTED IN TRACK MOVING MACHINE OPERATOR THE PRIOR ONE WAS CHANGED OUT DURING PROCEDURE WELL. I HAD 700ML BACK THIS AM ON INSERTION, WILL RECORD.
--- NOTE | 2020-02-22 15:57 | NUR ---
15:00PM- PT.'S RIGHT GROIN SITE IS C,D,I NO SIGN'S OF ANY HEMATOMA AT CATHTER/MYNX SITE. PEDAL PULSES ARE 2+ BILATERALLY, NO MOTTLING, WARM TO TOUCH BILATERALLY. PT. IS VOIDING PER CATHETER LARGE AMOUNTS THIS AFTERNOON ALREADY. VS STABLE, IN ROOM FOR PATIENT NEEDS.
--- NOTE | 2020-02-22 15:59 | NUR ---
PT. IS RETING AND LOOKS COMFORTABLE NOW COMPARED TO THIS AM WHEN HE KEPT TRYING TO TALK TO US AND HIS ABDOMEN WAS DISTENEDED. MCCLELLAN CATHETER APPEARS TO BE DOING THE TRICK THIS AFTERNOON HE HAS 2000 ML OUT OF NOW AND A TOTAL OF 2800 ML TODAY POST MCCLELLAN INSERTION. BREATHING APPEARS LESS LABORED WELL AND LUNG SOUNDS MORE CLEAR ON AUSCULTATION.
[2020-02-23] VITALS (10 sets, daily range): BP systolic 111–134; BP diastolic 46–99
--- NOTE | 2020-02-23 05:02 | NUR ---
ASSUMED PT CARE AT AROUND 1900, PT IS AWAKE, ALERT, FOOLOWS COMMANDS, PT IS STILL APHASIC AND NOT ABLE TO VOICE CONCERNS, ASSESSMENTS CHARTED, PT IS SR WITH PVCS, PT HAD BEATS OF VTACH WELL, PT ON 2L OF OXYGEN VIA NASAL CANULL' VSS, PT APPEARS TO BE STRESSED WHEN TRYING TO COMMUNICATE NEEDS D/T APHASIA, TOOK MEDICATIONS SCHEDULED, RIGHT GROIN SITE CDI, NO HEMATOMA NOTED, RESTING IN BED, NO DISTRESS NOTED, WILL CONTINUE TO MONITOR
[2020-02-23 05:09] LABS: CALCIUM 9.5 mg/dL (8.5-10.1); CREATININE 1.5 mg/dL (0.7-1.3); POTASSIUM 3.6 mmol/L (3.5-5.1)
--- NOTE | 2020-02-23 08:18 | EKG ---
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 : 1945 Requested By: Brii Sherman Order Number: [id number] MD: Jeremy Humphreys Measurements Intervals [place] Rate: 124 P: CT: 182 QRS: -137 QRSD: 146 T: 109 QT: 378 QTc: 543 Interpretive Statements AV sequential pacing Paired ventricular premature complexes Probable inferior infarct, old Compared to ECG 02/21/2020 07:40:41 Ventricular premature complex(es) now present Myocardial infarct finding now present Electronically Signed On 02-23-2020 8:18:37 CDT by Jeremy Humphreys [email or web address] <ELECTRONICALLY SIGNED> By: Jeremy Humphreys MD, [facility] 02/23/20 0818 0757 [id number] Jeremy Humphreys MD, [facility] /EPI
--- NOTE | 2020-02-23 19:27 | NUR ---
PT CARE ASSUMED AT 0700. ASSESSMENTS CHARTED. MEDICATION CHARTED. PT HAD RUNS OF VTACH THIS AM; AMIODARONE BOLUS AND DRIP. TRANSFER TO REHAB POSTPONED. SECONDARY RUN OF VTACH IN AFTERNOON; AMIODARONE BOLUS AND 16.7 ML DRIP. IV PLACED IN RFA BY IV THERAPY.
[2020-02-24] VITALS (8 sets, daily range): BP systolic 112–1216; BP diastolic 50–59
--- NOTE | 2020-02-24 05:32 | NUR ---
ASSESSMENT DOCUMENTED.PT BEEN RESTING IN NO ACUTE DISTRESS.ALERT TO SELF,NON-VERBAL 22 CVA.A-PACED ON MONITOR.ON AMIODARONE DRIP PER ORDERS.PVCS NOTED WITH NON SUSTAINING VTACH BEATS LESS THAN FIVE BEATS X3 TIMES.O2 AT 2 LITERS PNC.MCCLELLAN DD.TOLERATING NECTAR THICK LIQUIDS.INCONTINENT OF BOWELS X1.NO ACUTE DISTRESS NOTED AT THIS TIME.POC IS TO TRANSFER TO REHAB TODAY OR TOMORROW.
[2020-02-24 05:57] LABS: CALCIUM 9.1 mg/dL (8.5-10.1); CREATININE 1.4 mg/dL (0.7-1.3); POTASSIUM 3.3 mmol/L (3.5-5.1)
--- NOTE | 2020-02-24 10:34 | NUR ---
Patient may possibly dc over the weekend to 5N. Acute rehab aware. IF dc over weekend please call acute rehab [phone]. or [phone] rehab liason and alert of dc orders rec.
--- NOTE | 2020-02-24 12:39 | NUR ---
Goal for patient to transition to 5n rehab once stable. Anticipate no transition over weekend. If dc over weekend. call 5N [phone] and alert of dc. Or call rehab liason at [phone]
--- NOTE | 2020-02-24 16:18 | NUR ---
PATIENT HAS BEEN ACCEPTED FOR ACUTE REHAB ADMISSION. POTENTIAL ADMISSION OVER WEEKEND OF 02/24-02/26/20. INFORMATION RESOURCES DIRECTOR OPS MANAGER FOR WEEKEND IS JOSE PLEASE CALL HER AT [phone] IF PATIENT IS MEDICALLY READY TO ADMIT TO REHAB. THANK YOU FOR THIS REFERRAL.
--- NOTE | 2020-02-24 18:06 | NUR ---
PT CARE ASSUMED AT 0700. ASSESSMENTS CHARTED. MEDICATIONS CHARTED. PT UP IN CHAIR THIS AFTERNOON. PT HAS SMALL FIRM SPOT INNER LT ELBOW APPROX WHERE IV WAS LOCATED. PT CONTINUES TO HAVE HIGH BLOOD GLUCOSE.
--- NOTE | 2020-02-25 03:54 | NUR ---
PATIENT ALERT AND ORIENTED TO SELF. RESTLESS AT TIMES IN THE BED. MCCLELLAN TO D/D WITH BERENICE URINE. INCONTINENT OF BOWEL X2 AT TIME OF NOTE WITH MODERATE LIQUID BROWN STOOL. IVF INFUSING PER ORDER. TELE WITH NSR. 2LNC IN PLACE, NO SOA NOTED. RIGHT SIDE REMAINS FLACCID. CRUSHING MEDICATION, MIXED WITH PUDDING. BS MONITORED PER ORDER. POSSIBLE D/C TO REHAB IN AM TO 5 [facility]. WILL MONITOR.
[2020-02-25 04:50] VITALS: BP 123/55
[2020-02-25 09:00] LABS: CALCIUM 8.8 mg/dL (8.5-10.1); CREATININE 1.1 mg/dL (0.7-1.3); POTASSIUM 3.6 mmol/L (3.5-5.1)
[2020-02-25 10:00] VITALS: BP 112/58
[2020-02-25] MEDS ORDERED: FLOMAX0.4 MG PO (11:58)
[2020-02-25] MEDS ORDERED: PACERONE 200 M200 M1 PO (11:59)
[2020-02-25] MEDS ORDERED: ENOXAPARIN40 MG/0.1 SUBQ (11:59)
[2020-02-25] MEDS ORDERED: LIPITOR40 MG PO (11:59)
[2020-02-25] MEDS ORDERED: LOPRESSOR50 PO (12:00)
[2020-02-25] MEDS ORDERED: ASPIR 8181 MG PO (12:00)
[2020-02-25] MEDS ORDERED: LANTUS SUBQ (12:01)
[2020-02-25 12:24] VITALS: BP 121/58
--- NOTE | 2020-02-25 14:51 | NUR ---
ASSUMED CARE AT SHIFT CHANGE, ALERT AND ORIENTED, VSS AND AFEBRILE. BG LOW THIS MORNING AND PATIENT WAS TREATED PER PROTOCOL, AND DR DELUNA NOTIFIED. ASSESSMENT DOCUMENTED, DENIES ANY DISCOMFORT AND PATIENT WILL TRANSFER TO REHAB TO FOLLOW POC.
--- NOTE | 2020-02-26 10:00 | CATHLAB ---
[facility] [place] [address] INVASIVE PROCEDURE REPORT Name: ELISE GRANT Room #: 203-P DIS IN M.R.#: [id number] Admission: 02/16/20 Attend Phys: Mike Mendieta MD Discharge: 02/25/20 Date of : 45 Report #: [id number] THIS REPORT FOR: cc: BERNARD - Family physician unknown BERNARD - Family physician unknown Westley Jung MD [facility] ~ APPROVED REPORT Study performed: 02/22/2020 11:48:22 Patient Details Patient Status: In-Patient Room #: The patient is a 74 year-old male Event Personnel Westley Jung Central Supply Technician, Des Martinez RN RN, Tammie Barakat RTR, JOYCELYN Scrdon, Diana Galindo Monitor Procedures Performed Art Access - R femoral artery* Tushar Access - R femoral vein Right and Left Heart Cath w/or w/o Coronarie [id number] [facility] 31590 Initial Mod Sed Same Phys/QHP Gr5y 154421 92710 Mod Sed Same Phys/QHP Ea 604017 Hemostasis w/ Mynx Indication Chest pain Procedure Narrative The Right Groin TOTAL OF 20ML^ was infiltrated with subcutaneous anesthesia. A PINNACLE 6FR Sheath #[id number] sheath was inserted into the RFA 6F^. Coronary angiography was performed using coronary diagnostic catheters. The right coronary system was accessed and visualized with a JR4 catheter. The left coronary system was accessed and visualized with a JL4 catheter. A hematoma occurred. There was no hematoma. 7F VENOUS SHEATH PULLED WITH MANUAL PRESSURE. NO HEMATOMA Intraoperative Conscious Sedation Sedation start time: 1246 Case end Time: 1345 Fentanyl 100 mcg Versed 1 mg Fluoro Time: 6.1 minutes Dose: DAP 8492.[address] [facility] [address] [place] [address] INVASIVE PROCEDURE REPORT Name: ELISE GRANT Room #: 203-P [facility] IN ..#: [id number] Admission: 02/16/20 Attend Phys: Mike Mendieta MD Discharge: 02/25/20 Date of : 45 Report #: [id number] Contrast Type and Amount: VISI. 140ML Hemodynamics The right atrial mean pressure is 22 mmHg. The right ventricular pressure is 72/14 mmHg. The pulmonary artery pressure is 73/38 mmHg with a mean of 52 mmHg. The mean pulmonary capillary wedge pressure is 38 mmHg. The aortic pressure is 158/73 mmHg with a mean of 111 mmHg. The cardiac output using thermo method is 5.33 L/min. Conclusion 1. Successful right heart catheterization with cardiac output by thermodilution. See above hemodynamics. #2 supravalvular aortogram above a prosthetic aortic valve. Trivial aortic insufficiency aortic root appears to be normal in caliber. #3 cheesh-na left coronary system is essentially occluded. Subtotaled ostial LAD and circumflex artery. #4 cheesh-na right coronary subtotally occluded in the mid vessel. #5 SVG to PDA is intact with brisk filling of the PDA mildly diseased. #6 there is a bifurcating graft that is widely patent initial segment into the mid LAD with brisk flow in a moderately diseased distal LAD. #7 the split superior branch graft fills a small diagonal system. Recommendations and plan: Patient needs aggressive diuresis. The ejection fraction noninvasively is approximately 40 to 45%. The bump in troponin is not clear but possibly the ostial circumflex but the risk-benefit does not favor attempted intervention. Aggressive medical therapy. Return to CCU in stable condition. <ELECTRONICALLY SIGNED> By: Westley Jung MD, FACC 02/26/2059 8 8 Westley Jung MD, FACC /INF
== END 2020-02-25 15:17 | DRG 61 ==
LOC: ER 12:32 → 2N 17:17 → ICU 17:17 → 2N 02-17 18:16
PROVIDERS: Emergency Medicine; Internal Medicine; Internal Medicine Cardiovascular Disease; Nurse Practitioner; Nurse Practitioner Adult Health; ADMIT Hospitalist; ATTEND Hospitalist
PROC: 4B02XSZ Measurement of Cardiac Pacemaker, External Approach (ICD-10-PCS; principal; 2020-02-16)
PROC: 3E03317 Introduction of Other Thrombolytic into Peripheral Vein, Percutaneous Approach (ICD-10-PCS; principal; 2020-02-16)
PROC: B211YZZ Fluoroscopy of Multiple Coronary Arteries using Other Contrast (ICD-10-PCS; 2020-02-22)
PROC: B212YZZ Fluoroscopy of Single Coronary Artery Bypass Graft using Other Contrast (ICD-10-PCS; 2020-02-22)
PROC: 4A023N8 Measurement of Cardiac Sampling and Pressure, Bilateral, Percutaneous Approach (ICD-10-PCS; 2020-02-22)
PROC: B310YZZ Fluoroscopy of Thoracic Aorta using Other Contrast (ICD-10-PCS; 2020-02-22)
DX: I63.9 Cerebral infarction, unspecified (principal); I21.4 Non-ST elevation (NSTEMI) myocardial infarction; E43 Unspecified severe protein-calorie malnutrition; J69.0 Pneumonitis due to inhalation of food and vomit; N17.9 Acute kidney failure, unspecified; E87.1 Hypo-osmolality and hyponatremia; E87.0 Hyperosmolality and hypernatremia; I47.2 Ventricular tachycardia; G81.01 Flaccid hemiplegia affecting right dominant side; R29.810 Facial weakness; R47.01 Aphasia; I25.10 Atherosclerotic heart disease of native coronary artery without angina pectoris; E78.00 Pure hypercholesterolemia, unspecified; E78.5 Hyperlipidemia, unspecified; I49.5 Sick sinus syndrome; Z66 Do not resuscitate; E11.22 Type 2 diabetes mellitus with diabetic chronic kidney disease; E11.36 Type 2 diabetes mellitus with diabetic cataract; E11.42 Type 2 diabetes mellitus with diabetic polyneuropathy; N18.9 Chronic kidney disease, unspecified; E11.65 Type 2 diabetes mellitus with hyperglycemia; I12.9 Hypertensive chronic kidney disease with stage 1 through stage 4 chronic kidney disease, or unspecified chronic kidney disease; R47.1 Dysarthria and anarthria; R13.10 Dysphagia, unspecified; I08.3 Combined rheumatic disorders of mitral, aortic and tricuspid valves; I25.2 Old myocardial infarction; Z95.2 Presence of prosthetic heart valve; Z95.0 Presence of cardiac pacemaker; Z95.1 Presence of aortocoronary bypass graft; Z79.4 Long term (current) use of insulin; Z68.21 Body mass index [BMI] 21.0-21.9, adult
CPT/HCPCS: 10078; 10081

== ENCOUNTER 2020-02-22 16:31 | Inpatient (IN) | payer OTHER, MEDICARE ==
[~2020-02-22] VITALS: Ht 175.3 cm; Wt 78.5 kg
[2020-02-25] MEDS ORDERED: FLOMAX0.4 MG PO (11:58)
[2020-02-25] MEDS ORDERED: PACERONE 200 M200 M1 PO (11:59)
[2020-02-25] MEDS ORDERED: ENOXAPARIN40 MG/0.1 SUBQ (11:59)
[2020-02-25] MEDS ORDERED: LIPITOR40 MG PO (11:59)
[2020-02-25] MEDS ORDERED: LOPRESSOR50 PO (12:00)
[2020-02-25] MEDS ORDERED: ASPIR 8181 MG PO (12:00)
[2020-02-25] MEDS ORDERED: LANTUS SUBQ (12:01)
[2020-02-25 16:00] VITALS: BP 121/42
[2020-02-25 19:57] VITALS: BP 127/52
--- NOTE | 2020-02-25 19:59 | NUR ---
1530 ADMITTED TO ROOM 513 FROM CCU. PT HAS LEFT CVA AND RIGHT SIDE HEPARESIS. SLURRED SPEECH, NOT ABLE TO COMMUNICATE HIS NEEDS AND FRUSTRATED AT TIME. WITH HIM AT BED SIDE. REASSESEMENT PER CHART. SKIN INTACT HAS CARDIAC CATH RECENTLY RIGHT GROIN DRESSING INTACT, NO HEMATOMA NOTED. PT HAS MCCLELLAN CATH REINSERT 2 DAYS AGO. HAS 3OOCC CLEAR URINE. PT IS ON FLOMAX DR. BERGER SAID IT CAN BE OUT ON NEXT THURSDAY. ENCOURAGED PT AND HIS TO VOICE THEIR CONCERNS. FAXED ADMISSION MEDS LIST TO PHARMACY. DR. BERGER CAME TO SEE PT. PT HAD ONE EPISODE OF LOW BS 28 THIS AM WHEN HE WAS ON HIGH DOSE OF SS AND LANTUS [address] BERGER GAVE ORDER FOR MODERATE SS AND LANTUS DOWN TO 15UNITS BID. BS 348 AT DINNER TIME. GAVE 16UNIT OF INSULIN PER MODERATE SS. NOTIFIED DR. BERGER THAT PT IS ON METOPROL 50MG, B/P 121/40 AND HR AT 60. RECEIVED ORDER TO CHANGE TO 25MG BID WITH PARAMETER. AND SCHEDULE MELATONIN AT NIGHT. PT HAD 2X INCONT DARK GREEN LOOSE STOOL. ASSISTED WITH CLEANING. PT ASSIST WITH TURNING. STRONG ON LEFT SIDE BUT PLACCID ON RIGHT SIDE. FALL AND SAFETY PROTOCOLS IN PLACE. DENIES PAIN AT THIS TIME. P.T./O.T./S.T. EVALS TO BE DONE IN THE A.M. GAVE REPORT TO TEE FARAH NURSE TO CONTINUE TO MONITOR.
--- NOTE | 2020-02-26 03:37 | NUR ---
BED ALARM WITH PATIENT IN VIEW OF NURSE STATION IN ROOM 513. TURNED TO LEFT SIDE TWICE, AND HE IS ABLE TO MOVE SELF SLOWLY TO HIS WEAK RIGHT SIDE. MCCLELLAN TO DD WITH PLAN TO REMOVE ON 02/26 AM. RESTLESS AND FRUSTRATED WITH APHASIA PREVENTING HIM FROM TELLING US THINGS. TURNED SELF TO SIDE TO HAVE LOOSE STOOL, WHICH MAY HAVE BEEN THE MAIN THING HE WAS TRYING TO TELL US. CLEANED OF LOOSE STOOL, NO NEW WOUNDS SEEN. LEFT AC HAS BRIGHT RED AREA, POSSIBLY FROM RECENT INFILTRATION.
[2020-02-26 05:09] LABS: HEMATOCRIT 34.9 % (42.0-52.0); HEMOGLOBIN 11.3 gm/dL (14.0-18.0); MCH 31.4 pg (26.0-34.0); MCHC 32.4 g/dL (28.0-37.0); MCV 96.9 fL (80.0-100.0); RBC 3.6 mil/uL (4.50-6.00); RDW 14.6 % (10.5-14.5); WBC 8.2 thou/uL (4.0-11.0)
[2020-02-26 05:18] LABS: CALCIUM 8.5 mg/dL (8.5-10.1); CREATININE 1.1 mg/dL (0.7-1.3); POTASSIUM 3.8 mmol/L (3.5-5.1)
--- NOTE | 2020-02-26 06:14 | NUR ---
LAB GLUCOSE=72 4 OZ NECTAR THICK APPLE JUICE BLOOD SUGAR = 119
[2020-02-26 08:51] VITALS: BP 121/58
--- NOTE | 2020-02-26 15:24 | NUR ---
Remains aphasic. Follows commands but communication is very difficult. Very large spontanous smile for BOWL ATTENDANT otherwise flat affect. Good appetite for meals needs max assist to eat. Remains on nectar thick liquids. at bedside. Quezada to DD clear yellow urine output.
[2020-02-26 19:30] VITALS: BP 116/43
--- NOTE | 2020-02-27 01:40 | NUR ---
MCCLLELAN TO DD, INCONTINENT OF STOOL, COOPERATIVE WITH TURNING TO SIDE FOR CLEAN UP AND Q 2 H TURNS. MOISTURE BARRIER TO PERIRECTAL AREA. MEDS WITH APPLESAUCE AT TIME OF INSULINS HS LANTUS AND SLIDING SCALE. TOLERATING NECTAR THICK LIQUIDS. FRUSTRATED WITH HIS APHASIA LIMITING HIS COMMUNICATION.
--- NOTE | 2020-02-27 03:21 | NUR ---
APHASIA CONTINUES. KICKING OFF COVERS, TURNING TO RIGHT SIDE, REMOVING SCDs. BP 110/40 PULSE = 60, PULSE OX 95% ON ROOM AIR, 97% ON 2L. COOPERATING WITH TURN TO RIGHT AND LEFT LEG ON PILLOW. FRUSTRATED.
[2020-02-27 08:45] VITALS: BP 123/46
--- NOTE | 2020-02-27 11:46 | NUR ---
chart review. dx CVA. cm tried to visit with pt, unable to out of room with therapy. cm spoke with hill via phone call, intro to cm, transition of care, ie home health, life alert, weekly team meeting and senior blue book. reported " completely independent prior to hospital. no medical equip. manage own medications and finances. was driving vehicle. 2 the 1 small step up to house and same from garage way. 15 steps with hr to basement which he was able to do prior to hospital."/ hill. will cont following as needed for dc needs.
--- NOTE | 2020-02-27 14:22 | NUR ---
ASSUMED CARE AT 0700 THIS MORNING. PT. GOTTEN UP TO W/C TO EAT IN THE DINNING ROOM. THERAPIES WORKED WITH PT. TODAY. HE TOOKE HIS MEDICATIONS WITH NECTOR THICK LIQUIDS. HE IS A FEEDER AT MEAL TIME. TALKED TO BOBBI Frank ABOUT NOT D/C MCCLELLAN TODAY DUE TO URINARY RETENTION. SHE STATED IS WAS ALRIGHT TO NOT D/C THE MCCLELLAN AT THIS TIME. HE HAD A SWOLLOW VIDEO SWALLOW TEST TODAY. FAMOTIDINE 20 MG PO QD WAS ADDED TO HIS MEDICATIONS. HE HAS APHASIA BUT DID MAKE A SOUND WHEN HE DID NOT WANT ME TO FEED HIM SOME TYPE OF FOOD IE: VEGETABLES.
--- NOTE | 2020-02-27 19:27 | NUR ---
CONSULT [phone] WAS COMPLETED BY THIS SERVICE LINE LAYER. THIS SERVICE LINE LAYER HAS VISITED THE PATIENT AND EVERY DAY PRESENT SINCE PT. WAS ADMITTED TO ICU, THE NEXT DAY AFTER COMING TO E.D. IS VERY SUPPORTIVE. HIS SON, Lamin Rdz.Sarah. IS FRIENDS WITH DR. ALLEN. THEY WORKED VERY CLOSELY TO DO EVERYING THEY COULD. PATIENT HAS EXPERIENCED NOTHING LESS THAN A MIRACULOUS TURN AROUND. 02/18/2020 PT. WAS MADE A DNR AND PLACED ON COMFORT CARE. 02/19/20 PATIENT WAS OFF COMFORT CARE
[2020-02-27 20:30] VITALS: BP 131/51
--- NOTE | 2020-02-28 01:34 | NUR ---
PT WAS OBSERVED LYING ON HIS BED AT SHIFT CHANGE.NO S/S OF PAIN NOTED.PT ALERT WITH APHASIA.PT WITH RECENT L CVA HENCE R SIDED WEAKNESS.PT SEEM FRUSTRATED AT TIMES DUE TO INABILITY TO COMMUNICATE.PT REPOSITIONED WHILE IN BED,R ARM ELEVATED WITH PILLOW.PT STILL ON 2L/NC.BG MONITORED WITH COVERAGE.MCCLELLAN CATH TO DD.NO BM SO FAR THIS SHIFT.PT SLEEPING ON HIS BED AT THIS TIME WITH BREATHING REGULAR AND UNLABORED.MEDS CRUSHED IN APLESAUCE AND NECTAR THICK LIQUID,TOLERATED WELL.FALL PRECAUTIONS IN PLACE,CALL LIGHT WITHIN REACH.
[2020-02-28 07:15] VITALS: BP 113/45
--- NOTE | 2020-02-28 12:45 | NUR ---
team meeting, recommendation: re team, he is cont to work with therapy, going to start vital stem with speech. on puree with nectar thick. have look into ramp at home and might be wheel chair level.
--- NOTE | 2020-02-28 17:51 | NUR ---
0715 Alert, lying in bed. Unable to assess orientation d/t aphasia. Watching TV. Strong sap treasury consultant on L, weak on R. Compliant with meds, crushed in pureed food. Pupils equal and briskly reactive. Reg even spontaneous resp on 2 L FIO2 per NC. Breath sounds clear t/o, bilaterally equal. Reg HR auscultated. Color pink with brisk capillary refill and palpable peripheral pulses. +1 edema in R hand. Yellow urine per nickerson to dependent drainage. Active bowel sounds over soft rounded abdomen. Small liquid green brown stool per pad. 0900 Up to WC with assistance of PT. Insulin given per order. 1600 Sitting at bedside in recliner. Becoming frustrated with inablility to communicate. Moved to room 516 per PT order. 1800 here assisting pt with feeding. Concerned about L AC space slightly reddened and firm to touch. States improved from yesterday. EMAIL MARKETING PROCESSOR Milagro notified, here assessing pt. Warm compress applied to area, will start on cephalexin per order.
[2020-02-28 19:40] VITALS: BP 120/48
--- NOTE | 2020-02-29 04:28 | NUR ---
PT WAS OBSERVED LYING ON THE BED WATCHING TV AT THE START OF SHIFT.PT DENIED PAIN.PT WITH RECENT CVA,R SIDED WEAKNESS NOTED.PT NON VERBAL SOMETIMES HE HAS DIFFICULTY EXPRESSING HIS NEEDS AND THIS FRUSTARTES HIM.PT STILL ON 02 AT 1L/NC .PILLS CRUSHED IN APPLESAUCE,PT TOLERATED WELL.SPOUSE HERE TO VISIT AT START OF SHIFT.MCCLELLAN CATH TO DD.PT SLEEPING ON HIS BED AT THIS TIME.FALL PRECAUTIONS IN PLACE,CALL LIGHT WITHIN REACH.
--- NOTE | 2020-02-29 09:33 | NUR ---
PT SITTING OUT IN DINING ROOM TO EAT BREAKFAST. PT RT SIDE IS FLACCID, PT ABLE TO USE LEFT SIDE. PT TAKING THICKEN LIQUIDS AT THIS TIME AND TOLERATING THEM. PT NON-VERBAL, ABLE TO UNDERSTAND THIS LEASE OPERATOR. PT ON 1 LITER OF OXYGEN. PT HAS REDDNESS TO LEFT AC AREA THAT IS WARM TO TOUCH. PT HAS PACEMAKER TO LEFT CHEST. PT LUNGS CLEAR. LAST BM 02/27. PT HAS CARDS AT BEDSIDE WITH YES AND NO. PT TAKES MEDS CRUSHED IN YOGART. MCCLELLAN TO DD FOR ACUTE RETENTION. PT DRANK THICKENED WATER IN SPOONFUL WITHOUT ANY COUGHING.
--- NOTE | 2020-02-29 18:03 | NUR ---
HERE TO HELP WITH SUPPER. PT TOLERATING LIQUID SOUP AND PUREED PEAS. SHE ALSO BROUGHT UNSWEETENED APPLESAUCE. PT UPSET ABOUT SOMETHING, ASKED IF HE WOULD NEEDED TO USE TOILET. PT SHOOK HEAD YES. PT TRANSFERED OVER X2 PERSONS. PT UNABLE TO HAVE A BM. PT THEN TRANSERED FROM BSC TO BED. PT WAS WANTING TO HAVE NURSE CALLED TO HELP WITH GETTING TO BED. PT WAS IMPATIENT AND SEEMED FRUSTRATED, LOOKING AT JOSE AND PUTTING HAND TO HEAD. PT HEAD RAISED UP. PT COMPLAINING OF PAIN TO BACK, PER STATED HE GETS BACK PAIN. SHE RUBBED BACK. CALLED BOBBI FOUNDRY ENGINEER FOR ORDERS FOR TYLENOL.
[2020-02-29 19:38] VITALS: BP 109/45
--- NOTE | 2020-03-01 06:17 | NUR ---
Pt was awake and alert at time of assessment. Pt unable to voice words due to expressive aphasia. However, pt able to follow commands as much as possible. Pt took meds crushed in yoghurt. Quezada in place. R side hemiparesis c/o stroke. Fall [id number] in place. Call light within reach. Will continue to monitor.
[2020-03-01 08:00] VITALS: BP 112/62
--- NOTE | 2020-03-01 10:43 | NUR ---
pt hill question about getting dpoa and poa to be able to pay bills. i am not on some of the accounts and have to pay bills, re-education we will not do any financial poa. . " understand would like to see if staff on 5th floor could witness for dpoa, we had that done but never got it notarized"/ . cm transferred called to 5n unite nurse flight test supervisor. will cont following as needed for dc needs
--- NOTE | 2020-03-01 10:59 | NUR ---
ASSUMED CARE AT 0700. PATIENT ORIENTATION STATUS UNABLE TO ASSESS R/T EXPRESSINVE APHAGIA. PATIENT HAS RIGHT SIDED WEAKNESS. PATIENT IS ON PUREED DIET WITH NECTAR THICK LIQUIDS. UP IN THE DINING ROOM WITH GAIT BELT AND WALKER. PATIENT WITH ST FOR BREAKFAST, VITASTIM APPLIED. PATIENT TAKES MEDS CRUSHED IN PUDDING/YOGURT. PATIENT LUNGS ARE CLEAR AND DEMINISHED. ABD IS SOFT WITH BSX4. MCCLELLAN TO DD, DRAINING BERENICE COLORED ULRINE. FALL AND SAFETY PROTOCOL IN PLACE. DENIES PAIN. CONTINUES TO PROGRESS SLOWLY TOWARDS D/C GOALS. WILL CONTINUE TO MONITER.
[2020-03-01 22:25] VITALS: BP 126/50
--- NOTE | 2020-03-02 05:08 | NUR ---
ASSUMED CARE OF PT AT 1930 ON 03/01/20. PT IS APHASIC, BUT COMMUNICATES WITH VISUAL AIDS. IS STABLE. DENIES PAIN. IS ON ROOM AIR. HAS RIGHT SIDED HEMIPLEGIA. HEELS OFF LOADED. Q2H TURNS. MCCLELLAN IN PLACE. IS ON 1L OF O2/NC. IS UP WITH MAX ASSIST OF 2, STAND PIVOT WITH GAIT BELT. FALL PRECAUTIONS & HOURLY ROUNDING CONTINUE THIS SHIFT. HAS ACCU CHECKS ACHS WITH HIGH DOSE SS. PACEMAKER TO LEFT CHEST. LABS & VITALS REVIEWED. PT IS CURRENTLY SLEEPING. CALL LIGHT WITHIN REACH. PT CALLS FOR ASSISTANCE NEEDED. WILL CONTINUE TO MONITOR.
[2020-03-02 05:47] LABS: ABSOLUTE NEUTROPHILS 4.7 thou/uL (1.4-8.2); BASOPHILS 0.5 % (0.0-2.0); EOSINOPHILS 1.8 % (0.0-3.0); HEMATOCRIT 30.7 % (42.0-52.0); HEMOGLOBIN 9.9 gm/dL (14.0-18.0); LYMPHOCYTES 17.3 % (24.0-44.0); MCH 31.3 pg (26.0-34.0); MCHC 32.4 g/dL (28.0-37.0); MCV 96.5 fL (80.0-100.0); MONOCYTES 8.6 % (1.0-8.0); PLATELET COUNT 204 thou/uL (150-400); POLYS 71.8 % (36.0-66.0); RBC 3.18 mil/uL (4.50-6.00); RDW 14.6 % (10.5-14.5); WBC 6.6 thou/uL (4.0-11.0)
[2020-03-02 06:38] LABS: CALCIUM 8.2 mg/dL (8.5-10.1); CREATININE 1.1 mg/dL (0.7-1.3); MAGNESIUM 2.1 mg/dL (1.8-2.4); POTASSIUM 4.1 mmol/L (3.5-5.1)
[2020-03-02 08:00] VITALS: BP 112/44
--- NOTE | 2020-03-02 10:50 | NUR ---
dir of inpt rehab had question rt phone call from hill who wants poa. cm passed that cmrn spoke with her yesterday on phone and education that we could do not do a poa for financials, we only at able to complete dpoa for medical. education on reeves and moshgiach can assist with poa.
--- NOTE | 2020-03-03 05:21 | NUR ---
Assumed care on 03/02/20 @ 19:15, in bed fall protocol being followed. Cooperates with assessment, VS Stable Lungs clear to ausculltation bilat, lower lobes diminished. BS noted x4 Q. Quezada catheter draining shirley urine to gravity. Compliant with medications crushed in yogart. Aphasic, communicates with gestures and attempts to verbalize in garbled speach. Drinks nectar thick fluids by spoonful. Acucheck 288 @ HS, prescribed insulin provided. Oxygen 1L via n/c. Bed in low position, bed alarm set, slept well overnight.
[2020-03-03 07:45] VITALS: BP 115/46
--- NOTE | 2020-03-03 09:46 | NUR ---
PT SITTING OUT IN DINING ROOM. PT NEEDS ASSISTANCE AND OBSERVATION WITH EATING. PT IN W/C THAT HE CAN PROPEL WITH LEFT FOOT. PT HAS LAP CATARINA ON FOR SAFETY. PT HAS MCCLELLAN TO DD, COLOR IS TEA COLOR. PT NON-VERBAL AND USES CUE CARDS TO COMMUNICATE. PT MEDS WERE GIVEN WHOLE IN YOGART. PT STILL HAS NECTOR THICK LIQUIDS VIA SPOON ADM. PT LUNGS CLEAR. PT ON 1L OF OXYGEN NC SAT 97%. ADM TYLENOL 650MG FOR NECK SORENESS.
--- NOTE | 2020-03-03 10:30 | NUR ---
PT WHEELED SELF TO ROOM. PT TURNING TO GO TO BATHROOM. THIS SOLAR SALES CONSULTANT HELD UP TOILET CARD AND HE TOOK IT AND RAISED IT UP. PT TRANSFERED VIA X2 PERSONS. PT ABLE TO PULL DOWN PANTS WITH LEFT ARM. PT HOLDING ONTO GRAB BAR. PT ABLE TO BEAR WEIGHT TO LEFT LE. PT HAD SOFT LIGHT BROWN COLOR STOOL. PT THEN BACK TO W/C WITH LAP CATARINA. PT WHEELED OUT TO ROOM TO WATCH TV. PT WANTED SOMETHING MORE TO DRINK BY HOLDING CARD WITH CUP. GAVE PT NECTOR THICKEN TEA. PT VERBAL IS MAMAMA.
--- NOTE | 2020-03-03 16:41 | NUR ---
ASSUMED CARE OF PT AT 0700. PT IS ALERT, PT NON-VERBAL. VITAL SIGNS ARE STABLE. MCCLELLAN CATHETER IN PLACE AND DRAINING APPROPRIATELY. ACCU CHECKS REVIEWED AND TREATED PER ORDERS. COMMUNICATED WITH PT USING PICTURE CARDS. PT DENIES PAIN AT THIS TIME. FALL PRECAUTIONS IN PLACE AND NURSING WILL CONTINUE TO MONITOR.
[2020-03-03 19:12] VITALS: BP 119/43
[2020-03-03 21:30] VITALS: BP 131/57
--- NOTE | 2020-03-03 23:46 | NUR ---
patient slightly short of air. o2 sat is 89. Placed back on O2 at 1L. sat 93%
--- NOTE | 2020-03-04 05:14 | NUR ---
PATIENT HAD HS FSBS OF 76. WHEN LANTUS INSULIN SCANNED THE TIME DID NOT ALLOW RN TO GIVE AND PHARMACY WAS CALLED TO LOOK AT THE ORDERS. CALL PLACED TO SAUNDRA JEAN ONCE IT WAS VERIFIED THAT THE ORDER DID INDEED CALL FOR HS LANTUS AND THERE WAS CONCERN REGARDING LOW FSBS. ORDER RECEIVED TO GIVE A SNAK AND HOLD LANTUS AND RECHECK AT MIDNIGHT. FSBS LATER IN THE NIGHT WAS 182. PT HAS HAD MULTIPLE DRINKS GIVEN BY SPOONFULLS THROUGHOUT THE NIGHT. TYLENOL GIVEN FOR PAIN IN RT ARM AND TONE NOTED. PROM DONE TO ARM AND REPOSITIONED ON PILLOW AND PT FELL ASLEEP.
[2020-03-04 07:30] VITALS: BP 111/46
--- NOTE | 2020-03-04 10:12 | HC ---
[facility] [place] [address] CONSULTATION Name: ELISE GRANT Room #: 516-1 ADM IN M.R.#: [id number] Admission: 02/25/20 Attend Phys: Michele Stubbs MD Discharge: Date of : 45 Report #: [id number] THIS REPORT FOR: cc: BERNARD - Family physician unknown [facility] - Family physician unknown Edwar Baez PhD ~ CC: Michele Stubbs [facility] unknown DATE OF SERVICE: 03/03/2020 NEUROBEHAVIORAL STATUS EXAM ATTENDING PHYSICIAN: Michele Stubbs MD SHREDDING SPECIALIST: Edwar Baez, PhD CLINICAL PRESENTATION: The patient is a 74-year-old male admitted to the [facility] with dysarthria and right-sided weakness. A CT perfusion study showed evidence of a left frontoparietal acute CVA and he was diagnosed with a large left hemispheric CVA. He was administered TPA. Currently, he presents with a dense right hemiplegia and complete expressive aphasia with significant dysphagia. Additionally, he was also noted to have a non-ST elevation myocardial infarction. His assessment on admission to the rehab unit included a large left hemispheric CVA with dense right spastic hemiplegia, severe expressive greater than receptive aphasia, significant dysphagia, sick sinus syndrome, status post permanent pacemaker, aortic stenosis, hypertension, hyperlipidemia, dysarthria and respiratory insufficiency. A complete description of his medical condition and history can be found in his medical record. Neuropsychological consultation was requested to provide assistance in the assessment of cognitive and emotional status and to provide services as needed. Prior to this most recent stroke, he was living independently with his in their home. He has two adopted daughters that he had raised since childhood. This is his second marriage. The patient is a high school graduate with 3 years of college. 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 His second marriage has been for 43 years. The patient has 1 sister that is . He is not reported to have a history of alcohol/drug abuse or depression/anxiety. TECHNIQUES UTILIZED: Clinical interview, review of medical records, staff consultation and behavioral observation, attempted use of a mini mental status exam and family interview -- . [facility] [address] [place] [address] CONSULTATION Name: ELISE GRANT Room #: 516-1 ADM IN M.R.#: [id number] Admission: 02/25/20 Attend Phys: Michele Stubbs MD Discharge: Date of : 45 Report #: [id number] EXAMINATION FINDINGS: The patient was not able to describe his current reason for hospitalization. He presents with a Broca's aphasia. Severe expressive deficits are noted. The patient is unable to read and follow written commands. He was able to follow 1 and 2 step motor commands. Auditory comprehension was much better than visually mediated and written comprehension. However, the patient was inconsistent in his yes/no reliability. He was unable to consistently select a yes/no response. A review of speech therapy notes indicate an expressive and receptive aphasia. Recent speech therapy notes indicate a moderate to severe deficit in comprehension and severe deficits in expression. Often with with expressive aphasia is difficulty in carrying out consistent motor behavior suggesting apraxia. His is wanting to obtain a durable power of attorney recruiter for his financial decision making. She indicated a desire to "freeze' his investments because of concern about variations in stock market volatility. Apparently, he was actively involved in trading and she is worried about their financial status. Additionally, she is wanting to purchase another car and is wanting access to their investment portfolio to obtain those funds. She reports being able to pay their bills based on checking and saving account management. However, durable power of attorney recruiter for director financial systems would allow her access in dealing with their financial investments to an extent that she had not prior to this stroke. 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 RECOMMENDATIONS: Currently, he lacks cognitive capacity to initiate a durable power of attorney recruiter. He has had a CVA which has resulted in an aphasia. The severity of his aphasia interferes with obtaining a satisfactory evaluation of his actual level of cognitive functioning. Indicated is continued speech therapy and follow up neuropsychological assessment to clarify neurocognitive status. Further treatment and assessment is indicated in order to better appreciate his actual level of cognitive functioning and mental capacity. A followup neuropsychological evaluation in approximately 3 months can provide a better perspective on his level of recovery from this CVA. [address] [address] CONSULTATION Name: ELISE GRANT Room #: 516-1 ADM IN M.R.#: [id number] Admission: 02/25/20 Attend Phys: Michele Stubbs MD Discharge: Date of : 45 Report #: [id number] Thank you very much for allowing me to provide the consultation on this patient. <ELECTRONICALLY SIGNED> By: Edwar Baez, PhD 03/04/20 1012 1525 1903 Edwar Baez, PhD /nt
--- NOTE | 2020-03-04 12:50 | NUR ---
EPISODES OF BRIEF AGITATION/FRUSTRATION R/T EXPRESSIVE APHASIA-AFTER WORKING WITH PT THIS AM APPEARED ANXIOUS-PUT ARMORED TRUCK DRIVER LIGHT AND WAS VERBALIZING SOUND "BUMM BUMM" SEVERAL TIMES. TYLENOL 650MG PO PRN AT APPROX 1130 BUT AFTER 75 PERCENT OF DOSE REFUSES TO OPEN MOUTH AND SHAKING HEAD IN NEGATIVE MANNER-WAS REPOSITIONED IN CHAIR FOR COMFORT AND APPEARS CALMER-ATE BREAKFAST AND LUNCH WITH STAFF FEEDING AND AT BEDSIDE FOR ENTIRE MEAL-APPETITE IS GOOD-NO COUGHING NOTED DURING MEALS,SMALL AMOUNT OF POCKETING OF LARGER PEICES OF FOOD NOTED AT LUNCH. POSITIONED IN BED AFTER LUNCH ABND APPEARS TO BE RESTING QUIETLY AT THIS TIME
--- NOTE | 2020-03-04 17:30 | NUR ---
BLOOD SUGAR AT 1630 [id number] W/D-ALERT WATCHING TV WITH . YOGURT AND JUICE GIVEN AND FED SUPPER BY -ATE APPROX. 50 PERCENT OF MEAL PROVIDED AND BENEFIBER SUPPLEMENT-BLOOD SUGAR RECHECK AT 1730-114.
[2020-03-04 20:28] VITALS: BP 132/47
--- NOTE | 2020-03-05 02:41 | NUR ---
PT REMAINS APHASIC. HE SOMETIMES MOTIONS WITH A THUMBS UP IN AGREEMENT TO A QUESTION. COMMUNICATION BY CUES.HE SWALLOWED HIS MEDS WELL CRUSHED IN APPLESAUCE. LIKES HIS NECTAR THICK TEA AND RECEIVED SEVERAL SPOONFULS THROUGH THE NIGHT. PT IS AFEBRILE.VOLTAREN CRM APPLIED TO NECK, SHOULDERS AND R ARM. R ARM ELEVATED ON PILLOW. PT BEEN AFEBRILE. REMAINS ON 1L/NC TO KEEP SATS ABOVE 92%. VY WITH GOOD U/O.WILL CONTINUE WITH POC TILL EOS.
[2020-03-05 07:44] VITALS: BP 106/48
[2020-03-05 19:30] VITALS: BP 109/43
--- NOTE | 2020-03-06 02:19 | NUR ---
PATIENT ASESSED AND IS ALERT X 2. SKIN WARM AND DRY. RESP EVEN AND UNLABORED. TURNED NEEDED. HAS RIGHT HEMIPLEGIA FROM STROKE. DOES COMMUNICATE WITH HAND AND THUBS UP OR DOWN. THICKEN LIQUIDS AND MEDS CRUSHED AND PLACED IN APPLESAUSE. TAKEN ALL MEDS WELL. AND THEN DRANK SOME THICKEN FLUIDS. HE DOES COUGH AND SPUTTER AT TIMES WHEN HE DRINKS SOME THICKEN LIQUIDS.VY MCMULLENOIANS IN AT HS. WILL DC, FOR VOIDING TRAILS. NO IV ACCESS. BED ASSIST X 2, DOES PIVOT X 1-2 PERSON IS STRONG ON PIVOT SIDE WHEN HE TRANSFERES. CONT OF BOWEL. NO BM THIS SHIFT SO FAR. ON 1 LNC DENIES ANY SOA. ALSO DENIESD ANY PAIN. CAN CHANGE TV CHANNELS BY HIMSELF, SEEN HIM DO IT. REFUSED HIS SNACK OF [employer]OGART AT HS, TAKEN APPLESAUSE WITH HIS PILLS. LUNGS COURSE IN LLL. CONT PLAN OF CARE
--- NOTE | 2020-03-06 04:56 | NUR ---
bs checked since all of med changes BS WAS 237. NO S/S NOTED REMAINS ALERT X 1-2. WATCHING TV.
--- NOTE | 2020-03-06 05:28 | NUR ---
PATIENT MCCLELLAN CATH REMOVED AT 0400. OFFERED URINAL BUT DID NOT VOID AT THAT TIME.
--- NOTE | 2020-03-06 06:24 | NUR ---
PATIENT NOT HAVE TO VOID YET. OFFERED URINAL BUT DOES NOT FEEL LIKE HE HAS TO GO.
[2020-03-06 06:46] LABS: ABSOLUTE NEUTROPHILS 3.7 thou/uL (1.4-8.2); EOSINOPHILS 1.7 % (0.0-3.0); HEMATOCRIT 30.2 % (42.0-52.0); HEMOGLOBIN 9.9 gm/dL (14.0-18.0); LYMPHOCYTES 17.8 % (24.0-44.0); MCH 31.7 pg (26.0-34.0); MCHC 32.7 g/dL (28.0-37.0); MCV 96.9 fL (80.0-100.0); MONOCYTES 10.2 % (1.0-8.0); PLATELET COUNT 207 thou/uL (150-400); POLYS 69.3 % (36.0-66.0); RBC 3.12 mil/uL (4.50-6.00); RDW 14.4 % (10.5-14.5); WBC 5.4 thou/uL (4.0-11.0)
[2020-03-06 07:10] LABS: CALCIUM 8.5 mg/dL (8.5-10.1); CREATININE 1.1 mg/dL (0.7-1.3); MAGNESIUM 1.9 mg/dL (1.8-2.4)
[2020-03-06 08:00] VITALS: BP 106/49
--- NOTE | 2020-03-06 12:51 | HC ---
[facility] [place] [address] CONSULTATION Name: ELISE GRANT Room #: 516-1 ADM IN M.R.#: [id number] Admission: 02/25/20 Attend Phys: Michele Stubbs MD Discharge: Date of : 45 Report #: [id number] THIS REPORT FOR: cc: BERNARD - Family physician unknown BERNARD - Family physician unknown Mila Rose MD ~ CC: Michele WAGNER unknown DATE OF SERVICE: 03/05/2020 ENDOCRINE CONSULTATION NOTE CONSULTING PHYSICIAN: Dr. Michele Stubbs. REASON FOR CONSULTATION: Uncontrolled type 2 diabetes mellitus. HISTORY OF PRESENT ILLNESS: This is a 74-year-old male patient whose medical background is significant for multiple medical issues including type 2 diabetes mellitus, hypertension, coronary artery disease as well as a recent CVA. 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 Simultaneously, he was diagnosed as having a non-ST elevation myocardial infarction. Following the stabilization of his hyman medical issues, the patient was admitted to the rehabilitation unit in order to proceed with rehabilitative efforts. The patient has been a diabetic for many years and has been maintained on a regimen of Lantus insulin 15 units twice a day. Unfortunately, the patient's severe aphasia limits his ability to provide a meaningful history in terms of the glycemic control outlook as an outpatient and the presence of diabetic complications. The patient is also treated for hyperlipidemia with atorvastatin and is maintained on amiodarone for atrial fibrillation as well as metoprolol twice a day. REVIEW OF SYSTEMS: Cannot be obtained in a meaningful way due to the patient's severe expressive aphasia. PAST MEDICAL HISTORY: 1. Type 2 diabetes mellitus. 2. Hypertension. 3. Hyperlipidemia. 4. Atrial fibrillation. 5. Coronary artery disease status post CABG, ejection fraction 50% with inferior wall hypokinesis. [facility] [address] [place] [address] CONSULTATION Name: ELISE GRANT Room #: 516-1 ADM IN ..#: [id number] Admission: 02/25/20 Attend Phys: Michele Stubbs MD Discharge: Date of : 45 Report #: [id number] 6. Sick sinus syndrome. 7. Benign prostatic hypertrophy. 8. Left hemispheric CVA with resultant right hemiplegia and expressive aphasia. 9. Aortic stenosis. CURRENT MEDICATIONS: Flomax 0.4 mg daily, Lovenox 40 mg at bedtime, amiodarone 400 mg daily, atorvastatin 40 mg at bedtime, metoprolol 50 mg b.i.d., aspirin 81 mg daily, Lantus insulin 10 units b.i.d. ALLERGIES: No known drug allergies. FAMILY HISTORY: Noncontributory. SOCIAL HISTORY: The patient is reported as a smoker, no documentation of active alcohol use. PHYSICAL EXAMINATION: GENERAL: Pleasant male patient sitting upright in bed, eating lunch, does not appear to be in pain or distress. VITAL SIGNS: Blood pressure 106/48 mmHg, heart rate is 59 beats per minute, respirations 22 per minute, temperature of 36.4 degrees Celsius. CONSTITUTIONAL: The patient appears comfortable, not in apparent distress. HEENT: Anicteric sclerae. Intact extraocular motions. NECK: Supple, without JVD, carotid bruits or lymphadenopathy, no thyromegaly. CHEST: Noted for moderate air entry bilaterally with scattered rales. No wheezes or crackles. HEART: Regular rate and rhythm without murmurs or gallops. ABDOMEN: Soft, lax. No guarding. Active bowel sounds. EXTREMITIES: Lower extremity exam, trace ankle edema. No skin breaks, ulcerations. Pedal pulses are faint. NEUROLOGIC: He is sitting upright in bed, right hemiplegia, severe expressive aphasia, but seems to comprehend my questions and dialogue. PSYCHIATRIC: Flat mood and affect. LABORATORY DATA: Blood glucose values were noted at length and over the past 24 hours these have fluctuated from 60 mg/dL at 5:00 p.m. yesterday to a high of 365 mg/dL before lunch today. The pattern of alternating mild to moderate hypoglycemia down to 76 and then to hyperglycemia towards 400 mg/dL was noted repeatedly. Otherwise, sodium 143, potassium 4.1, chloride 107, CO2 of 29, anion gap 7, BUN 27, creatinine 1.1. AST 47, total bilirubin 1.1, calcium 8.2, phosphorus 2.8, magnesium 2.1, alkaline phosphatase 85, ALT 37, protein 6.8, albumin 2.6, EGFR 65. Troponin 60.45, total cholesterol 114, triglycerides 72, HDL 51, LDL 49. White blood count 6.6, hemoglobin 9.9, hematocrit 30.7, platelets 204. Hemoglobin A1c is 7.9%. TSH 1.064. ASSESSMENT AND PLAN: [address] [address] CONSULTATION Name: ELISE GRANT Room #: 516-1 ADM IN M.R.#: [id number] Admission: 02/25/20 Attend Phys: Michele Stubbs MD Discharge: Date of : 45 Report #: [id number] 1. Type 2 diabetes mellitus. As noted above, the patient has been dealing with a fairly brittle glycemic outlook. This has no doubt been made even worse by his significant dietary restrictions as the patient had alternated from minimal p.o. intake to taking high caloric pureed diet. I believe that the hyman first step would be to eliminate hypoglycemia with efficiency. That said, I would like to eliminate the evening dose of Lantus insulin to avoid nocturnal hypoglycemia and focus the effort towards morning coverage with 14 units of Lantus insulin once a day in the morning, but also add Tradjenta 5 mg daily as well as metformin 500 mg b.i.d. I will continue to utilize Humalog insulin scale for support as needed as we measure his blood glucose values a.c. and at bedtime. His therapeutic needs are likely to change as his level of p.o. intake and physical activity changes as well. 2. Hyperlipidemia. The patient is currently on atorvastatin therapy and tolerates it well, he is to continue with the same. 3. Hypertension. The patient's level of blood pressure control is adequate on the current regimen, he is to continue with the same. 4. Cerebrovascular accident. As noted above, the patient has suffered significant right hemiplegia and expressive aphasia and is undergoing active physical therapy and speech therapy for these issues. I have reviewed the patient's clinical care notes, laboratory data and other pertinent clinical information for over 35 minutes in addition to my encounter time with him. I certainly appreciate this consultation by Dr. Stubbs. <ELECTRONICALLY SIGNED> By: Mila Rose MD 03/06/20 1251 1230 [id number] Mila Rose MD /nt
--- NOTE | 2020-03-06 13:26 | NUR ---
team meeting, recommendation: he no unreliable with yes or no rt dx and aphasia. will need more information rt finances planing before she will be able to bring her own trademark attorney and notary in for complete poa. coming in for training with therapy tomorrow and the see if they need different dcp. dc on . will need ramp, and wheel chair if goes home.
--- NOTE | 2020-03-06 16:47 | NUR ---
ASSUMED CARE OF PT AT 0700. PT IS ALERT AND NON-VERBAL. PT DENIES PAIN AND PARTICIPATED IN SCHEDULED THERPIES. ACCU CHECKS ACHS. MCCLELLAN CATHETER REPLACED THIS SHIFT DUE TO INABILITY TO VOID. BLADDER SCAN INDICATED 630ML RETAINED. MCCLELLAN CATHETER PLACED PER PROTOCOL W/O COMPLICATIONS, PT TOLERATED WELL, 550ML CLEAR, YELLOW URINE EMPTIED FROM BLADDER. PT EXPRESSED RELIEF. MCCLELLAN TO REMAIN IN PLACE UNTIL F/U WITH UROLOGY PER [employer] TASK FORCE PLANNERS. PT UP FOR ALL MEALS WITH 100% SUPERVISION. IN AM PT HAD EPISODE OF SOB AND WAS PLACED ON 2L O2 FOR COMFORT. O2 SAT ON ROOM AIR WAS 92%, RR 28, HR 84, FINE CRACKLES NOTED BILATERALLY. PT ENCOURAGED TO USE IS AND NO FURTHER EPISODES REPORTED. DINNER BG 69, APPLE JUICE GIVEN TO PT WITH DINNER TRAY. NO S/S OF HYPOGLYCEMIA NOTED. FALL PRECAUTIONS IN PLACE AND NURSING WILL CONTINUE TO MONITOR.
[2020-03-06 19:40] VITALS: BP 119/43
--- NOTE | 2020-03-07 02:03 | NUR ---
ASSESSED AT START OF SHIFT 1900. PT ALERT WITH EXPRESSIVE APHASIA FROM STROKE HX. EVENING MEDS GIVEN CRUSHED IN THICK LIQUID PT MIGUEL A IT WELL. LUNG SOUNDS COARSE, ON 2L OF O2 AND GETS SCHEDULED BX. BSG AND INSULIN ADMINISTERED. FOLLEY INTACT AND DRAINING. FALL PREC IN PLACE, HOURLY ROUNDING DONE WILL CONT TO MONITOR.
--- NOTE | 2020-03-07 13:56 | NUR ---
ASSUMED CARES AT 0700. PT ALERT AND ORIENTED*4. DENIES PAIN. VITALS REMAIN STABLE. ASPIRATION PRECAUTIONS MAINTAINED WITH ALL MEALS, PT REMAINS ON NECTAR THICK FLUIDS AND TOLERATED WELL. PT CONTINUES TO HAVE EXPRESSIVE APHASIA, COMMUNICATION CARDS UTILIZED. CONTINUES TO HAVE RIGHT-SIDED HEMIPARESIS, UP WITH 1-2 MOD ASSIST, GB AND WALKER/WC AND TOLERATED WELL. Q1H VISUAL CHECKS, SPOUSE AT THE BEDSIDE. CALL LIGHT WITHIN REACH. FALL PRECAUTIONS IN PLACE
[2020-03-07 20:49] VITALS: BP 117/47
[2020-03-07 22:30] VITALS: BP 122/56
--- NOTE | 2020-03-08 02:49 | NUR ---
PT ASSESSMENT COMPLETED AND VSS. MEDS GIVEN ORDERED AND WELL TOLERATED. INSULIN GIVEN PER SLIDING SCALE. SNACK PROVIDED. USED YES/NO CARDS AND PICTURES WHICH WERE VERY HELPFUL. PT FRUSTRATED AT TIMES TRYING TO EXPLAIN WHAT HE NEEDED. PROVIDED MUCH EMOTIONAL SUPPORT. SPENT A LOT OF TIME LOOKING AT HIS FAMILY PICTURES WITH HIM. HE SMILED AND GAVE THIS RN A THUMBS UP. ASST WITH FREQUENT REPOSITION FOR COMFORT. UP TO THE BSC WITH MAX 2-3 ASST. MODERATE SOFT BROWN BM AT HS. SLEEPING WELL. WILL CONTINUE TO MONITOR FREUQENTLY.
[2020-03-08 08:30] VITALS: BP 105/43
--- NOTE | 2020-03-08 22:10 | NUR ---
ASSUMED CARE OF PT AT 0730. PT IS ALERT. USES COMMUNICATION CHARTS TO COMMUNICATION. IS APHASIC. IS ON ROOM AIR. DENIES PAIN. HAS RIGHT SIDED WEAKNESS. IS UP WITH MAX ASSIST OF 2, GB, SP. IS STABLE. IS ON ROOM AIR. DENIES PAIN. PT HAD AN EPISODE OF LOW BG LEVELS OF 47 THAT IMPROVE TO 64 THEN 79 AFTER DRINKING 2 CARTONS OF OJ & APPLE JUICE THICKENED. PT WAS ASYMPTOMATIC. SPOUSE WAS AT BEDSIDE. FALL PRECAUTIONS & HOURLY ROUNDING MAINTAINED THIS SHIFT. LABS & VITALS REVIEWED. WILL CONTINUE TO MONITOR.
[2020-03-08 22:45] VITALS: BP 117/51
[2020-03-09 01:05] VITALS: BP 112/46
[2020-03-09 08:00] VITALS: BP 103/61; BP 103/64
--- NOTE | 2020-03-09 10:29 | NUR ---
received phone call voice message from hill " bs at low at dinner time so he needs snack around 1230 and 1500 like yogurt"/. cm passed on information to bedside nurse and 5n team. cm called back and spoke with her " you know i think we will need some short term rehab at dc because going to need little work on bathroom, like having the doors taken off"/. education on skilled list and senior blue book that was already provided and how can not visit in skilled. hill started to cry allot, active listing and education on pd with hh and ability miguel a. " oh i am not having a good day and need to think about all of this"/hill. will cont following as needed for dc needs.
--- NOTE | 2020-03-09 21:35 | NUR ---
ASSUMED CARE OF PT AT 0700. PT IS ALERT, NON-VERBAL, DOES RESPOND APPROPRIATELY TO NAME. ON UNIT THIS AFTERNOON. ACCU CHECKS ACHS. PT INDICATED TO STAFF THAT HE FELT LIKE HE HAD LOW BLOOD GLUCOSE THIS AFTERNOON FOLLOWING LUNCH. ACCU CHECK COMPLETED, HYPOGLYCEMIA NOTED AND PT OFFERED JUICE AND GLUCOSE GEL PER ORDERS. INSULIN HELD FOR DINNER. EXPRESSED CONCERN THAT PT MAY BE HAVING EPISODES DUE TO BEING ON INSULIN AND PO MEDICATIONS. INFORMED THAT ENDOCRINE AND HOSPITALIST TEAM WERE FOLLOWING THE PATIENT AND WILL MAKE FURTHER ADJUSTMENTS NEEDED AND THAT NURSING WILL CONTINUE TO MONITOR AND ASSIST PT WITH DIETARY NEEDS TO MANAGE BLOOD GLUCOSE. FALL PRECAUITONS IN PLACE AND NURSING WILL CONTINUE TO MONITOR.
[2020-03-09 22:56] VITALS: BP 138/88
[2020-03-09 23:13] VITALS: BP 138/88
[2020-03-09 23:15] VITALS: BP 88/40
--- NOTE | 2020-03-10 04:31 | NUR ---
assumed care at approx 1900 evening 03/09. pt alert and oriented x4, appropriate and cooperative. pt with expressive aphasia. meds crushed and given in applesauce. nickerson to dd. pt incontinent of bowel, changed and repositioned. pt appears to be sleeping soundly with hourly rounding checks. bed alarm on and call light in reach. will continue to monitor.
[2020-03-10 05:44] LABS: BASOPHILS 0.7 % (0.0-2.0); EOSINOPHILS 1.6 % (0.0-3.0); HEMOGLOBIN 9.9 gm/dL (14.0-18.0); LYMPHOCYTES 17.8 % (24.0-44.0); MCH 31.6 pg (26.0-34.0); MCV 95.7 fL (80.0-100.0); MONOCYTES 8.9 % (1.0-8.0); PLATELET COUNT 210 thou/uL (150-400); RBC 3.14 mil/uL (4.50-6.00); RDW 14.9 % (10.5-14.5); WBC 5.6 thou/uL (4.0-11.0)
[2020-03-10 06:09] LABS: CALCIUM 9.1 mg/dL (8.5-10.1); CREATININE 1.5 mg/dL (0.7-1.3); MAGNESIUM 1.7 mg/dL (1.8-2.4); POTASSIUM 4.7 mmol/L (3.5-5.1)
[2020-03-10 08:30] VITALS: BP 115/52
--- NOTE | 2020-03-10 19:01 | NUR ---
ASSUMED CARE OF PT AT 0700. PT IS ALERT, APHAGIA NOTED, RT SIDE WEAKNESS. WHEEZES TO BILATERAL UPPER LOBES DURING AM ASSESSMENT, DENIES SOB, O2 SAT >90%. ACCU CHECKS ACHS, MONITORED POOR INTAKE, BROUGHT IN LUNCH AND DINNER AND PT HAD INCREASED INTAKE. MCCLELLAN CATHETER IN PLACE, DRAINING APPROPRIATELY. DENIES PAIN, PARTICIPATED IN SCHEDULED THERAPIES. FALL PRECAUITONS IN PLACE AND NURSING WILL CONTINUE TO MONITOR.
[2020-03-10 20:23] VITALS: BP 106/45
--- NOTE | 2020-03-11 02:58 | NUR ---
NECTAR THICK LIQUIDS GIVEN BY SPOON WHILE PATIENT AWAKE, PREFERS TEA TO WATER. TOLERATES MEDS CRUSHED IN APPLESAUCE WITH EXCEPTION OF FLOMAX GIVEN WHOLE IN CAPSULE WHICH HE SWALLOWED WELL. MCCLELLAN TO BECKA CONTINUES
[2020-03-11 10:11] VITALS: BP 110/38
--- NOTE | 2020-03-11 19:47 | NUR ---
PATIENT IRRITATED AND FRUSTRATED MOST OF THE DAY. UNABLE TO COMMUNICATE AND HARD TO COMMUNICATE DUE TO HIS CVA. ATTEMPTS TO RELAY HIS NEEDS BUT HARD TO GRASP WHAT HE NEEDS. PATIENT 1 ASSIST TO TOLLET ON COMMODE AND TRANSFER. TAKES MEDICATIONS CRUSHED WELL IN APPLESAUCE OR THICKENED TEA. PATIENT NEEDS TO BE FED AND EATS WELL BUT DIFFICULTY SWALLOWING. NEED TO PROCEDE VERY SLOWLY. PATIENT COMPLAINED OF BACK PAIN TODAY AND TYLENOL WORKS WELL WITH DISCOMFORT. NEEDED INSULIN DURING THE DAY WITH BLOOD SUGARS RUNNING OVER 200 BUT BOTTOMED OUT AT DINNER TIME AT 59 REQUIRING 4 TABS OF GLUCOSE. RETAKEN HALF HOUR LATER AND FOUND TO BE 104. PATIENT COMPLIANT WITH MEDICATIONS. ENJOYS MEALS BROUGHT IN BY .
[2020-03-11 22:30] VITALS: BP 115/65
[2020-03-11 22:36] VITALS: BP 111/56
[2020-03-11 23:22] VITALS: BP 103/37
--- NOTE | 2020-03-12 04:08 | NUR ---
PT ASSESSMENT COMPLETED AND VSS. MEDS GIVEN ORDERED AND WELL TOLERATED. FALL PRECAUTIONS IN PLACE. UP IN CHAIR EARLY DURING SHIFT. PT DID EAT SOME DINNER WITH RN ASST. DRINKING FREQUENT SIPS OF NECTOR THICK TEA WHICH HE ENJOYS. ASST WITH FREQUENT REPOSITION USING PILLOWS FOR COMFORT. MCCLELLAN DRAINING YELLOW URINE. SCDS ON. HEAD ELEVATED. SLEEPING WELL. WILL CONTINUE TO MONITOR FREQUENTLY.
--- NOTE | 2020-03-12 11:45 | NUR ---
received voice message requested call back. estelle called her back she was on her way up there to bring jacquie paredese lunch " you only have 4 choice and he is not wanting to eat. i am possible wanting him to go to [facility] acute rehab, my daughter called and he has 100 medicare days, his heart and endocrine dr at there and main reason you all do not have urology and he has nickerson, i am thinking about all his care he needs. i have asked to have dr call me, and you can talk with my son in law who is a physician, the know dr alvarado and have asked christiano to call dr mata."/hill. cm education on same number of days for acute rehab, cm passed on information that i would have unite nurse filling and packing supervisor speak with her and i passed on information to MD, and Service Center Supervisor's. will cont following as needed for dc needs. cm passed on information to speech to reach out to on how the going to trial diff foods, and anything on menu can be pureed. will cont following as needed for dc needs.
[2020-03-12 13:44] VITALS: BP 110/45
[2020-03-12 19:49] VITALS: BP 112/44
--- NOTE | 2020-03-12 20:11 | NUR ---
ASSUMED CARE OF PT AT 0715. PT IS ALERT. IS ON ROOM AIR. IS STABLE. IS UP WITH 1-2 ASSIST, GB, STAND PIVOT TO BSC, BED OR CHAIR. FALL PRECAUTIONS & HOURLY ROUNDING CONTINUED THIS SHIFT. REPORTED SOME PAIN IN NECK THAT IS BEING MANAGED WITH TOPICAL & ORAL MEDS, WELL OTHER THERAPUETIC TECHNIQUES. LABS & VITALS REIVEWED. PT HAD A FEW ELEVATED BG LEVELS TODAY. SPOUSE WAS CONCERNED. SHE SPOKE WITH THE NURSE STAMP COLLECTOR & THE HOSPITALIST YEAST SUPERVISOR. SHE WILL CALL & CHECK ON PT THIS EVENING. PT IS CURRENTLY UP IN RECLINER. MCCLELLAN IN PLACE. CHAIR ALARM ON. CALL LIGHT WITHIN REACH. PT CALLS OUT FOR ASSISTANCE NEEDED. COMMUNICATES VIA COMMUNICATION CHART & ANSWERES YES NO QUESTIONS. PT HAS GLOBAL EXPRESSIVE APHASIA. RIGHT SIDED HEMIPERISIS. WILL CONTINUE TO MONITOR.
[2020-03-12 22:00] VITALS: BP 125/65
--- NOTE | 2020-03-13 02:13 | NUR ---
PT ASSESSMENT COMPLETED AND VSS. MEDS GIVEN ORDERED AND WELL TOLERATED. PT C/O SOME CONSTIPATION. COLACE GIVEN. MCCLELLAN WITH LARGE AMOUNT OF YELLOW URINE. ASST WITH REPOSITION FOR COMFORT USING PILLOWS. USED PICTURES AND YES AND NO CARDS TO ASST. HELPFUL. BED ALARM ON AND SIDE RALES UP FOR PT SAFETY. SLEEPING WELL. WILL CONTINUE TO MONITOR FREQUENTLY. INSULIN GIVEN WITH SNACK ORDERED.
--- NOTE | 2020-03-13 08:43 | NUR ---
estelle notified by acute rehab nurse electrical & instrumentation supervisor that pt has requested a family meeting which electrical & instrumentation supervisor 5n set up for 1430 today, and wants her daughter to be environmental remediation engineer for meeting as well. she stated that sw told her to get a advocate for her , and how to do the dcp. this cm has not spoke with her about an advocate. only dcp of home vs skilled rehab. resource have been provided for hill. estelle received voice message from daughter eber [phone] requested call back
[2020-03-13 11:57] VITALS: BP 102/41
[2020-03-13 19:54] VITALS: BP 109/54
[2020-03-13 22:30] VITALS: BP 121/56
--- NOTE | 2020-03-14 00:08 | NUR ---
PT ASSESSMENT COMPLETED AND VSS. MEDS GIVEN ORDERED AND WELL TOLERATED. FALL PRECAUTIONS IN PLACE. UP IN CHAIR EARLY DURING SHIFT. MAX 2 ASST TRANSFER FROM CHAIR TO BED. MCCLELLAN DRAINING DARK URINE. ASST WITH REPOSITION FOR COMFORT. PT HAD A SNACK WITH INSULIN THIS EVENING. SLEEPING WELL. GAVE REPORT TO ONCOMING ADOLPH VASQUES.
--- NOTE | 2020-03-14 02:45 | NUR ---
AT 2300 REPORT, PT WAS AWAKE AND ALERT, NO COMPLAINTS. NOTED URINE IS BLOODY, BUT NO CLOTS SEEN. ENCOURAGING THICKENED LIQUIDS ON ROUNDS WHILE AWAKE. PT TURNED AND REPOSITIONED Q 2 H, AND CURRENTLY ON HIS RIGHT SIDE. SKIN IS WARM AND DRY AT PRESENT.
[2020-03-14 08:00] VITALS: BP 127/34
--- NOTE | 2020-03-14 08:05 | NUR ---
LATE ENTRY FOR 03/13/20. PT ALERT, NON-VERBAL DUE TO STROKE. VITAL SIGNS ARE STABLE, PT DENIES PAIN AND PARTICIPATED IN SCHEDULED THERAPIES. ACCU CHECKS ACHS. ASSISTANCE WITH FEEDING. AT LUNCH PT GIVEN INSULIN BY FELLOW NURSE AND THEN GIVEN THIS NURSE. PROVIDERS AND FAMILY NOTIFIED. FREQUENT ACCU CHECKS INITIATED AND HYPOGLYCEMIA PROTOCOL INITIATED. INSULIN AT DINNER HELD. FALL PRECAUTIONS IN PLACE AND NURSING WILL CONTINUE TO MONITOR.
--- NOTE | 2020-03-14 08:08 | NUR ---
ASSUMED CARE OF PT AT 0300. PT IS ASLEEP. VITAL SIGNS AND ASSESSMENT REVIEWED AND NO CHANGES AT THIS TIME. MCCLELLAN CATHETER IN PLACE AND DRAINING. FALL PRECAUTIONS IN PLACE AND NURSING WILL CONTINUE TO MONITOR.
--- NOTE | 2020-03-14 16:14 | NUR ---
ASSUMED CARES AT 0700. PT AWAKE, ORIENTED*4. APHASIC. BG ELEVATED TODAY, SEE LABS, EXECUTIVE SALES MANAGER NOTIFIED AND ORDERS RECEIVED .. CONTINUE TO MONITOR. C/O HEADACHE, PAIN MEDICATION ADMINISTERED. ALL OTHER VITALS REMAIN STABLE. PT CONTINUES TO HAVE RIGHT SIDED HEMIPLEGIA, UP WITH 1 MOD ASSIST GB AND W/C AND TOLERATED WELL. PT REMAINS ON NECTAR THICK FLUIDS, ASPIRATION PRECAUTIONS MAINTAINED. MCCLELLAN REMAINS INTACT AND PATENT, URINE REMAINS DARK YELLOW AND CLEAR. VOIDING TRIAL ATTEMPTED TODAY, AFTER 2HRS OF CLAMPING PT WAS UNABLE TO COMMUNICATE URGENCY OR NEED TO VOID. Q1H VISUAL CHECKS. CALL LIGHT WITHIN REACH. FALL PRECAUTIONS IN PLACE
[2020-03-14 20:00] VITALS: BP 123/48
--- NOTE | 2020-03-15 03:14 | NUR ---
ASSUMED CARE OF PT AT 1915 ON 03/14/20. PT IS ALERT. IS ON ROOM AIR. DENIES PAIN. IS STABLE. HAS EXPRESSIVE APHASIA. USES COMMUNICATION SHEETS TO COMMUNICATE. HAS RIGHT SIDED HEMIPARESIS. IS UP WITH MAX ASSIST OF 2, GB, WALKER LAST EVENING TO BSC & TO BED. FALL PRECAUTIONS & HOURLY ROUNDING CONTINUED THIS SHIFT. HAS PACEMAKER LEFT CHEST. MCCLELLAN INTACT. LABS & VITALS REVIEWED. PT IN ROOM SLEEPING. CALL LIGHT WITHIN REACH. WILL CONTINUE TO MONITOR.
[2020-03-15 06:14] LABS: BASOPHILS 0.6 % (0.0-2.0); EOSINOPHILS 2.3 % (0.0-3.0); HEMATOCRIT 29.6 % (42.0-52.0); HEMOGLOBIN 9.8 gm/dL (14.0-18.0); LYMPHOCYTES 16.8 % (24.0-44.0); MCH 31.8 pg (26.0-34.0); MCHC 33.1 g/dL (28.0-37.0); MCV 96.3 fL (80.0-100.0); MONOCYTES 8.4 % (1.0-8.0); PLATELET COUNT 152 thou/uL (150-400); POLYS 71.9 % (36.0-66.0); RBC 3.07 mil/uL (4.50-6.00); RDW 15.4 % (10.5-14.5); WBC 5.5 thou/uL (4.0-11.0)
[2020-03-15 06:54] LABS: CALCIUM 8.6 mg/dL (8.5-10.1); CREATININE 1.3 mg/dL (0.7-1.3); MAGNESIUM 1.5 mg/dL (1.8-2.4); POTASSIUM 5.4 mmol/L (3.5-5.1)
--- NOTE | 2020-03-15 16:57 | NUR ---
FAXED REFERRAL TO [facility] SPOKE WITH SANJUANA IN ADM SHE RECEIVED REFERRAL AND WILL REVIEW. FAXED REFERRAL TO [facility] RECEIVED CONFIRMATION AND LEFT MSG WITH ADM. FA[facility]ED REFERRAL TO [facility] RECEIVED CONFIRMATION AND WILL F/U WITH FACILITY IN THE AM. DP TO FOLLOW.
--- NOTE | 2020-03-15 17:09 | NUR ---
ASSUMED CARE OF PT AT 0700. PT IS ALERT. NON-VERBAL USES CARDS AND HAND GESTURES TO COMMUNICATE NEEDS. MCCLELLAN CATHETER IN PLACE. ACCU CHECKS ACHS, AND TREATED PER ORDERS. DENIES PAIN AND PARTICIPATED IN SCHEDULED THERAPIES. FALL PRECAUTIONS IN PLACE AND NURSING WILL CONTINUE TO MONITOR.
[2020-03-15 20:00] VITALS: BP 103/40
--- NOTE | 2020-03-16 00:41 | NUR ---
PT CALLED WHEN HE WAS READY FOR BED-HE WAS SITTING IN RECLINER AT CHANGE OF SHIFT. PT SEEMS COMFORTABLE-NO SIGNS OF FRUSTRATION. HE MOTIONS YES OR NO. HE ALSO SMILES. MCCLELLAN WITH NO SIGNS OF HEMATURIA. TRANSFERRED TO BED WITH ASSIST X 2- HE SEEMED TIRED SO HE DID NOT HELP MUCH.R ARM AND LEGS ELEVATED ON PILLOWS. RLE WITH SOME 1+ PEDAL EDEMA-NO ERYTHEMA OR WARMTH. PT SWALLOWED HIS MEDS OKAY AND OFCOURSE HAD SEVERAL SPOONFULS OF THE ICED TEA.AFEBRILE. SATTING OKAY ON ROOM AIR.FALL PREC IN PLACE. WILL CONTINUE WITH POC TILL EOS.
[2020-03-16 04:06] VITALS: BP 112/41
[2020-03-16 08:20] VITALS: BP 121/41
--- NOTE | 2020-03-16 18:14 | NUR ---
ASSUMED CARE OF PT AT 0700. PT IS A&OX4 AND VITAL SIGNS ARE STABLE. PT REPORTS PAIN TO RIGHT ANKLE, PO MEDICAITONS PROVIDED. PT PARTICIPATED IN SCHEDULED THERAPIES. ACCU CHECKS ACHS. MCCLELLAN CATHETER IN PLACE AND DRAINING APPROPRIATELY. AT BEDSIDE THIS EVENING AND ASSISTING PT WITH EATING. PT CALLS APPROPRIATELY. FALL PRECAUTIONS IN PLACE AND NURSING WILL CONTINUE TO MONITOR.
[2020-03-16 19:25] VITALS: BP 98/40
--- NOTE | 2020-03-17 02:44 | NUR ---
assumed care at approx 1900 evening 03/16. pt lying in bed with head of bed elevated at change of shift. pt with aphasia and meds crushed given in applesauce. nickerson to dd with yellow urine to bag. pt appears to be sleeping soundly with hourly rounding. bed alarm on and call light in reach. will continue to monitor.
[2020-03-17 06:30] LABS: ALBUMIN 2.5 g/dL (3.4-5.0); CALCIUM 8.4 mg/dL (8.5-10.1); CREATININE 1.3 mg/dL (0.7-1.3); MAGNESIUM 1.3 mg/dL (1.8-2.4); POTASSIUM 4.2 mmol/L (3.5-5.1); TOTAL BILIRUBIN 0.5 mg/dL (0.2-1.0); TOTAL PROTEIN 6.1 g/dL (6.4-8.2)
[2020-03-17 08:30] VITALS: BP 108/38
--- NOTE | 2020-03-17 18:41 | NUR ---
VERY PLEASANT. UP TO BR WITH ONE ASSIST. SPEECH INCOMPREHENSIBLE. HERE AND SINGING WITH BIA AND SHE COULD UNDERSTAND SOME OF HAPPY BIRTHDAY. LARGE FORMED BM. GOOD APPETITE FOR MEALS.
[2020-03-17 20:43] VITALS: BP 112/41
--- NOTE | 2020-03-18 02:49 | NUR ---
assumed care at approx 1900 evening 03/17. pt sitting in recliner at change of shift. nickerson to dd emptied 600ml at change of shift. pt took hs meds crushed in applesauce. max assist x3 up to bed at . pt appears to be sleeping soundly with hourly rounding checks. bed alarm on and call light in reach. will continue to monitor.
[2020-03-18 08:30] VITALS: BP 111/36
--- NOTE | 2020-03-18 11:35 | NUR ---
ASSUMED CARE AT 0700. PATIENT IS AWAKE AND ALERT, WITH GLOBAL APHAGIA. PATIENT HAS RIGHT SIDED WEAKNESS. PATIENT USES CARDS TO COMMUNICATE WITH STAFF. LUNGS ARE CLEAR AND DEMINISHED. ABD IS SOFT WITH BSX4. PAIENT HAD SMALL BM TODAY. PATIENT HAS MCCLELLAN TO DD, DRAINING BERENICE COLORED URINE. UP TO THE BSC WITH MAX ASSIST OF 2 STAFF, THEN TRANSFERED TO RECLINER WITH 2 STAFF. CALL LIGHT IN REACH. FALL AND SAFETY PROTOCOLS IN PLACE. DENIES PAIN AT THIS TIME. CONTINUES TO PROGRESS SLOWLY TOWARDS D/C GOALS. WILL CONTINUE TO MONITER.
[2020-03-18 20:00] VITALS: BP 117/39
--- NOTE | 2020-03-18 23:30 | NUR ---
ASSUMED CARE OF PT AT 1915. PT IS ALERT. HAS APHASIA, BUT COMMUNICATES VIA COMMUNICATION SHEETS & ANSWERS YES & NO QUESTIONS. HAS RIGHT SIDED HEMIPARESIS. IS UP WITH MAX ASSIST OF 1-2, GB STAND PIVOT TO CHAIR & BEDSIDE COMMODE. FALL PRECAUTIONS & HOURLY ROUNDING CONTINUED THIS SHIFT. PT DENIES PAIN. IS STABLE. LABS & VITALS REVIEWED. MCCLELLAN IN PLACE. HAS LEFT CHEST PACE MAKER. ACHS ACCU CHECKS. PT TAKES MEDS CRUSHED IN APPLE SAUCE. LIKES TO DRINK THICKENED TEA. PT IS CURRENTLY SLEEPING. CALL LIGHT WITHIN REACH. WILL CONTINUE TO MONITOR.
[2020-03-19 07:35] VITALS: BP 109/40
--- NOTE | 2020-03-19 10:13 | NUR ---
returned voice message from [facility] , " wanting to know what the a facility have said, who can all take him. need his rehab time to be changed for tomorrow at 0930 finance lecturer will be here to complete dpoa and poa. 9am is supposed to be his fitting for numotion but needs to be timely because finance lecturer will be here. also i want to bring his dog up to see him or in parking lot if has to be before he goes to rehab"/[facility]. passed on information still waiting to here from [facility] and [facility] not heard back from and advanced is a no needing to much assistance. " [facility] his 1[facility] choice."/[facility]. passed on information to [facility] lower in supervisor of [address] [place] [address] medical [phone] for home ramp
--- NOTE | 2020-03-19 14:59 | NUR ---
FAXED CLINICAL UPDATE TO [facility] SPOKE WITH LORIE IN ADM SHE RECEIVED UPDATE. DP TO FOLLOW.
[2020-03-19 21:16] VITALS: BP 110/44
--- NOTE | 2020-03-19 21:20 | NUR ---
ASSUMED CARE OF PT AT 0700. PT IS ALERT, RESPONDS NON-VERBALLY APPROPRIATELY TO QUESTIONS. VITAL SIGNS ARE STABLE, PT PARTICIPATED IN SCHEUDLED THERPAIES. ACCU CHECKS ACHS. INSULIN HELD THIS EVENING DUE TO BG LESS THAN 100 AND POOR INTAKE. MCCLELLAN CATHETER IN PLACE AND DRAINING APPROPRIATELY. FALL PRECAUTIONS IN PLACE AND NURSING WILL CONTINUE TO MONITOR.
--- NOTE | 2020-03-20 01:53 | NUR ---
PT ALERT WITH EXPRESSIVE APHASIA. HAS DIFFICULTY EXPRESSING NEEDS AND BECOMES FRUSTRATED VERY EASILY. USES PICTURE BOARD TO HELP WITH COMMUNICATION. MCCLELLAN PATENT DRAINING ADEQUATE AMTS CLEAR YELLOW URINE. BLOOD SUGAR 317 AT HS. INSULIN GIVEN ORDERED. SNACK GIVEN. PT TAKES MEDS CRUSHED IN APPLESAUCE WITHOUT DIFFICULTY. PT DENIES PAIN OR DISCOMFORT. BED ALARM ON FOR SAFETY. PT APPEARS TO BE SLEEPING ON HOURLY ROUNDS.
[2020-03-20 08:30] VITALS: BP 111/38
--- NOTE | 2020-03-20 11:29 | NUR ---
ASSUMED CARE AT 0700. PATIENT IS ALERT AND ORIENTED. PATIENT HAS GLOBAL APHAGIA. PATIENT USES PICTURES TO COMMUNICATE WITH STAFF. LUNGS ARE CLEAR AND DEMINISHED. ABD IS SOFT WITH BSX4. UP IN THE W/C AND OUT TO THE DINING ROOM FOR MEALS. AT BEDISIDE. MEDS ARE CRUSHED IN APPLESAUCE. PATIENT HAS MCCLELLAN TO DD, DRAININ BERENICE COLORED URINE. PATIENT HAS RIGHT SIDED WEAKNESS. FALL AND SAFETY PROTOCOLS IN PLACE. NO C/O PAIN . CONTINUES TO PROGESS TOWARDS D/C GOALS. WILL CONTINUE TO MONITER.
--- NOTE | 2020-03-20 13:51 | NUR ---
team meeting, recommendation: 21st dc to skilled, bs have been up and down. nickerson- follow up outpt for urology. will cont following as needed for dc needs.
[2020-03-20 19:50] VITALS: BP 106/41
--- NOTE | 2020-03-20 23:50 | NUR ---
PT IN A GOOD MOOD . HE WAS ASSISTED X 2 TO THE BSC AND THEN BACK TO BED. R FOOT SLIGHTLY SWOLLEN ELEVATED ON PILLOW. COMMUNICATING WELL WITH THE PICTURE CARDS WELL THUMBS UP AND DOWN. MCCLELLAN WITH GOOD U/O. BP LEVEL NOT REQUIRING TOPROL AT HS. HS BLOOD SUGAR @330 DOSED INSULIN GIVEN. R SIDED FLACIDITY, R HAND ELEVATED ON PILLOW.TOOK FEW SPOONFULS OF TEA. ON ROOM AIR AND IN NO DISTRESS-HOB ELEVATED. AFEBRILE.WILL CONTINUE WITH POC TILL EOS.
[2020-03-21 07:49] VITALS: BP 111/44
--- NOTE | 2020-03-21 09:38 | NUR ---
ASSUMED CARE AT 0700. PATIENT IS ALERT AND ORIENTED, BUT HAS GLOBAL APHAGIA. PATIENT HAS RIGHT SIDED WEAKNESS. UP IN W/C AND OUT TO THE DINING ROOM FOR MEALS. LUNGS ARE CLEAR. ABD IS SOFT WITH BSX4. MCCLELLAN TO DD, DRAINING BERENICE COLORED URINE. PATIENT COMMUNICATES WITH STAFF WITH PICTURE BOARDS. FALL AND SAFETY PROTOCOLS IN PLACE. DENIES PAIN AT THIS TIME. WILL CONTINUE TO MONITER.
--- NOTE | 2020-03-21 12:13 | NUR ---
FAXED CLINICAL UPDATE TO [facility] SPOKE WITH KAMERON IN ADM SHE RECEIVED UPDATE. DP TO FOLLOW.
[2020-03-21 13:44] LABS: ABSOLUTE NEUTROPHILS 3.6 thou/uL (1.4-8.2); BASOPHILS 0.6 % (0.0-2.0); EOSINOPHILS 1.9 % (0.0-3.0); HEMATOCRIT 31.6 % (42.0-52.0); HEMOGLOBIN 10.5 gm/dL (14.0-18.0); LYMPHOCYTES 14.4 % (24.0-44.0); MCH 32.3 pg (26.0-34.0); MCHC 33.3 g/dL (28.0-37.0); MCV 96.8 fL (80.0-100.0); MONOCYTES 10.4 % (1.0-8.0); PLATELET COUNT 136 thou/uL (150-400); POLYS 72.7 % (36.0-66.0); RBC 3.26 mil/uL (4.50-6.00); RDW 17.1 % (10.5-14.5); WBC 4.9 thou/uL (4.0-11.0)
[2020-03-21 13:55] LABS: CALCIUM 9.1 mg/dL (8.5-10.1); CREATININE 1.4 mg/dL (0.7-1.3); MAGNESIUM 1.5 mg/dL (1.8-2.4); POTASSIUM 3.9 mmol/L (3.5-5.1); URIC ACID* 6.1 mg/dL (3.5-7.2)
--- NOTE | 2020-03-21 14:30 | NUR ---
chart copy requested, 4w us going to complete chart copy. [id number] completed and sent with pt on for dc to [facility]. covid test to be ordered and send over results prior to dc. [facility] would like to have jacquie ready for dc by 1030 on . bedside nurse to call report to [phone]
[2020-03-21 19:45] VITALS: BP 119/55
--- NOTE | 2020-03-22 04:51 | NUR ---
PT ASSESSMENT COMPLETED AND VSS. MEDS GIVEN ORDERED AND WELL TOLERATED. FALL PRECAUTIONS IN PLACE. UP IN CHAIR EARLY DURING THE SHIFT. INSULIN GIVEN ORDERED WITH SNACK. PT DRINKING GOOD AMOUNT OF NECTOR THICK FLUIDS. ASST WITH REPOSITION FOR COMFORT. REFUSED SCDS. MCCLELLAN DRAINING MODERATE AMOUNT OF YELLOW URINE. SLEEPING WELL. WILL CONTINUE TO MONITOR FREQUENTLY.
[2020-03-22 08:00] VITALS: BP 123/48
--- NOTE | 2020-03-22 10:04 | NUR ---
ASSUMED CARE OF THE PT AT 0715. PT IS A&O TO SELF & SITUATION. IS APHASIC. HAS RIGHT SIDED HEMIPARESIS. EDEMA IN RLE (ANKLE, FOOT). DENIES PAIN. IS UP WITH MAX ASSIST OF 1-2, GB, PIVOT TO CHAIR/BED. FALL PRECAUTIONS & HOURLY ROUNDING CONTINUED THIS SHIFT. LABS & VITALS REVIEWED. WILL CONTINUE TO MONITOR. MCCLELLAN IN PLACE FOR RETENTION. LEFT CHEST PACEMAKER IN PLACE. PT IS CURRENTLY IN ROOM, IN W/C WATCHING TV. CALL LIGHT WITHIN REACH.
--- NOTE | 2020-03-22 14:07 | NUR ---
PATIENT'S BROUGHT WATERMELON FOR THE PATIENT, AND HE WAS OBSERVED COUGHING WHILE EATING IT. BUNDLER EDUCATED THE SPOUSE THAT WATERMELON CONTAINS THIN LIQUID JUICE AND WAS LIKELY CAUSING THE PATIENT TO COUGH. SPOUSE STATED INFORMATION WAS UNDERSTOOD AND CONSUMPTION OF THE FRUIT WAS DISCONTINUED. EDUCATION RE: CURRENT DIET OF MECHANICAL SOFT SOLIDS AND NECTAR THICK LIQUIDS WAS PROVIDED.
--- NOTE | 2020-03-22 16:01 | NUR ---
SPOKE WITH ADM. BELLO AT [facility] THEY WILL SET UP TRANSPORT FOR [phone] VAN AND TO CALL REPORT TO [phone] AND ASK FOR JULIETA FARFAN.
[2020-03-22 20:00] VITALS: BP 108/41; BP 112/56
--- NOTE | 2020-03-22 22:21 | NUR ---
CONTACTED ENDROCRINE DOCTORS ANSWERING SERVICE THIS EVENING. AMMONIA WORKER STATED THAT HIS NOTE READ THAT NURSES AND DOCTORS CALLING FROM A HOSPITAL SHOULD CONTACT THER HOSPITALIST GROUP FOR ADDITIONAL ORDERS. CONTACTED ITEM PROCESSING CLERK FRANNY RYAN. SHE WILL ADD ADDITIONAL ORDERS IF NEEDED FOR TONIGHT. PT DID RECEIVED HIS SSI LISPRO 12 UNITS, 5 UNITS LANTUS, AND METFORMIN ORDERED. WILL FOLLOW ANY ADDITIONAL ORDERS FROM ITEM PROCESSING CLERK.
[2020-03-23] VITALS (7 sets, daily range): BP systolic 99–114; BP diastolic 46–54
--- NOTE | 2020-03-23 00:43 | NUR ---
PT ASSESSMENT COMPLETED AND VSS. MEDS GIVEN ORDERED AND WELL TOLERATED. FALL PRECAUTIONS IN PLACE. MAX ASST TRANSFER FROM CHAIR TO BED. MCCLELLAN DRAINING DARK YELLOW URINE. ASST WITH FREQUENT REPOSITION FOR COMFORT. FUNGAL GROIN. APPLIED FUNGAL BARRIER CREAM. PRN TYLENOL HELPFUL FOR R FOOT PAIN. SLEEPING WELL. WILL CONTINUE TO MONITOR FREQUENTLY.
--- NOTE | 2020-03-23 08:22 | NUR ---
cm called to [facility] to speak with nurse about jacquie being ready for dc between 1030 and 1100 today for [facility], cm was notified that dc on home rt high bs and need for o2 now. cm left message for [facility]
--- NOTE | 2020-03-23 11:08 | NUR ---
ASSUMED CARE OF PT AT 0700. PT IS ALERT, NON-VERBAL, VITAL SIGNS ARE STABLE. AM BLOOD GLUCOSE >500, LAB DRAW ORDERED AND PROVIDERS NOTIFIED OF RESULTS. NEW ORDERS FOR IV INSULIN AND GLUCOSE MONITORING. AT THIS TIME BG LEVELS REMAIN >500. IV TO LEFT FOREARM PLACED. MCCLELLAN CATHETER IN PLACE AND DRAINING APPROPRIATELY. MORNING ASSESSMENT PT HAS NO CHANGES FROM BASELINE LOC, PT PLACED ON 2L OF O2 BY RT IN AM DUE TO O2 SAT OF 85%, LUNG SOUNDS ARE CLEAR BILATERALLY IN ALL LOBES. IS AT THE BEDSIDE. PT DENIES PAIN. AT THIS TIME DISCHARGE IS BEING HELD. FALL PRECAUTIONS IN PLACE AND NURSING WILL CONTINUE TO MONITOR.
[2020-03-23 11:43] LABS: ALBUMIN 2.9 g/dL (3.4-5.0); ANION GAP 16 mmol/L (7-16); BUN 43 mg/dL (7-18); CALCIUM 8.9 mg/dL (8.5-10.1); CHLORIDE 99 mmol/L (98-107); CO2 18 mmol/L (21-32); CREATININE 1.8 mg/dL (0.7-1.3); POTASSIUM 5.6 mmol/L (3.5-5.1); SGOT 29 U/L (15-37); SGPT 35 U/L (30-65); SODIUM 133 mmol/L (136-145); TOTAL BILIRUBIN 0.5 mg/dL (0.2-1.0); TOTAL PROTEIN 6.6 g/dL (6.4-8.2)
[2020-03-23 11:51] LABS: GLUCOSE ND mg/dL (74-106)
--- NOTE | 2020-03-24 03:26 | NUR ---
assumed care at approx 1900 evening 03/23. pt lying in bed with head of bed elevated resting and calm. nickerson to dd with clear yellow urine to bag. pt took hs meds crushed with applesauce tolerating well. pt appears to be sleeping soundly with hourly rounding checks. bed alarm on and call light in reach. will continue to monitor.
[2020-03-24 05:34] LABS: HEMATOCRIT 29.4 % (42.0-52.0); HEMOGLOBIN 9.7 gm/dL (14.0-18.0); MCH 32.3 pg (26.0-34.0); MCHC 33.1 g/dL (28.0-37.0); MCV 97.5 fL (80.0-100.0); PLATELET COUNT 151 thou/uL (150-400); RBC 3.02 mil/uL (4.50-6.00); WBC 4.5 thou/uL (4.0-11.0)
[2020-03-24 05:58] LABS: CALCIUM 8.8 mg/dL (8.5-10.1); CREATININE 1.5 mg/dL (0.7-1.3); MAGNESIUM 1.6 mg/dL (1.8-2.4); POTASSIUM 4.8 mmol/L (3.5-5.1)
[2020-03-24 07:45] VITALS: BP 116/42
[2020-03-24 08:52] LABS: ABSOLUTE NEUTROPHILS 3.7 thou/uL (1.4-8.2); ANISOCYTOSIS 1+
[2020-03-24 08:53] LABS: OVALOCYTES 1+; SCHISTOCYTES FEW
[2020-03-24 20:00] VITALS: BP 106/36
--- NOTE | 2020-03-24 20:41 | NUR ---
ASSUMED CARE OF PT AT 0700. PT IS ALERT, NON-VERBAL, USES COMMUNICATION CARDS NEEDED. PT REPORTS HEADACHE AND PAIN TO RIGHT ANKLE, MANAGED WITH PO MEDICAITONS. ACCU CHECKS ACHS. BLOOD GLUCOSE ELEVATED IN AM. PER DR ROME FOLLOWING LUNCH RECHECK GLUCOSE AND IF >200 ADMINISTER 5UNITS OF REGULAR HUMAN INSULIN IV. IV INSULIN ADMINISTERED PER ORDERS, ACCU CHECKS COMPLETED Q1H FOLLOWING ADMINISTRATION, GLUCOSE WNL AT DINNER. IV TO LEFT FOREARM PATENT AND RUNNING PER ORDERS. AT BEDSIDE THIS EVENING. PT HAVING PERIODS OF CRYING TODAY. EXPRESSED THAT HE FEELS UPSET THAT HE WAS UNABLE TO D/C YESTERDAY AND MISSING FAMILY AND DOG. PT ABLE TO FORM SOME WORDS THIS SHIFT AND WAS ABLE TO SAY "TOMATO" AT DINNER WHEN ASKING WHAT HE HAD EATEN. MCCLELLAN CATHETER IN PLACE AND DRAINING APPROPRIATLEY. FALL PRECAUTIONS IN PLACE AND NURSING WILL CONTINUE TO MONITOR.
--- NOTE | 2020-03-24 23:48 | NUR ---
assumed care approx 1900 this evening 03/24. pt sitting up in recliner until hs watching tv. when aides went into pts room approx 2200 pt with blood to right elbow. pt had skin tear to right elbow bleeding. difficult to understand pt from expressive aphasia but apparently he had been moving around in recliner and bumped right elbow on arm rest. applied thick abd pad and wrapped elbow with kerlix and radha wrap before assisting to bed. pt now resting in bed with elbow elevated on pillow. will continue to monitor. nickerson to dd with clear yellow urine to bag. pt took hs meds crushed with applesauce tolerating well. IVF infusing to left forearm. pt appears to be sleeping soundly. bed alarm on and call light in reach. will continue to monitor.
[2020-03-25 08:39] VITALS: BP 110/50
--- NOTE | 2020-03-25 11:19 | NUR ---
ASSUMED CARE OF PT AT 0715. PT IS A&O TO SELF & SITUATION. IS APHASIC, BUT USES COMMUNICATION SHEETS TO COMMUNICATE. DENIES PAIN. IS ON ROOM AIR. IS STABLE. HAS RIGHT SIDED HEMIPARESIS. IS UP WITH MAX ASSIST OF 1-2, GB, STAND PIVOT. FALL PRECAUTIONS & HOURLY ROUNDING CONITNUED THIS SHIFT. MCCLELLAN IN PLACE. HAS LEFT CHEST PACEMAKER. NON-PITTING EDEMA IN RLE. LABS & VITALS REVIEWED. PT IS UP IN W/C, WITH GB & SAFETY BELT & CHAIR ALARM IN PLACE. AWAITING LUNCH. IV FLUID INFUSING PER ORDER. PT HAS SKIN TEAR ON RIGHT ELBOW. CLEANED WITH NS. COVERED WITH GUAZE, ABD & TRUE WRAP. PIC TAKEN & IN CHART. CALL LIGHT WITHIN REACH. WILL CONTINUE TO MONITOR.
[2020-03-25 14:19] LABS: ABSOLUTE NEUTROPHILS 2.7 thou/uL (1.4-8.2); BASOPHILS 0.3 % (0.0-2.0); EOSINOPHILS 3.4 % (0.0-3.0); HEMATOCRIT 31.8 % (42.0-52.0); LYMPHOCYTES 16.9 % (24.0-44.0); MCH 34.1 pg (26.0-34.0); MCHC 34.5 g/dL (28.0-37.0); MCV 98.8 fL (80.0-100.0); PLATELET COUNT 179 thou/uL (150-400); POLYS 68.4 % (36.0-66.0); RBC 3.22 mil/uL (4.50-6.00); RDW 18.4 % (10.5-14.5)
[2020-03-25 14:33] LABS: ALBUMIN 2.8 g/dL (3.4-5.0); CALCIUM 8.5 mg/dL (8.5-10.1); CREATININE 1.5 mg/dL (0.7-1.3); MAGNESIUM 1.5 mg/dL (1.8-2.4); POTASSIUM 4.1 mmol/L (3.5-5.1); TOTAL BILIRUBIN 0.4 mg/dL (0.2-1.0); TOTAL PROTEIN 6.7 g/dL (6.4-8.2)
[2020-03-25 14:48] LABS: ANISOCYTOSIS 1+; OVALOCYTES 1+
[2020-03-25 21:18] VITALS: BP 102/50
--- NOTE | 2020-03-26 04:13 | NUR ---
RECIEVED CARE OF THIS PATIENT AT 1900. PATIENT ALERT AND ORIENTED TO 4. WHEN QUESTIONED WITH YES AND NO QUESTIONS IS ABLE TO KNOW HE IS ORIENTED X4. SAT UP IN RECLINER FIRST PART OF NIGHT. HAS MCCLELLAN THAT IS PATENT CLEAR YELLOW URINE. DRESSING ON R ARM D/I. EXT'S ON R SIDE EDEMATOUS. BOTH UP ON PILLOWS. R SIDE FLACCID. HAS GLOBAL APHASIA. USES GESTURES TO HELP COMMUNICATE WELL SHEETS WITH WORDS AND PICTURES. ACCUCHECK WAS 131, NO COVERAGE NEEDED. DENIES PAIN. SLEPT MOST OF NIGHT.
[2020-03-26 06:07] LABS: ABSOLUTE NEUTROPHILS 2.8 thou/uL (1.4-8.2); BASOPHILS 0.5 % (0.0-2.0); HEMATOCRIT 29.3 % (42.0-52.0); HEMOGLOBIN 9.7 gm/dL (14.0-18.0); MCH 32.1 pg (26.0-34.0); MCV 97.4 fL (80.0-100.0); MONOCYTES 10.2 % (1.0-8.0); PLATELET COUNT 149 thou/uL (150-400); POLYS 65.3 % (36.0-66.0); RBC 3.01 mil/uL (4.50-6.00); RDW 17.8 % (10.5-14.5); WBC 4.2 thou/uL (4.0-11.0)
[2020-03-26 06:34] LABS: CALCIUM 8.2 mg/dL (8.5-10.1); CREATININE 1.2 mg/dL (0.7-1.3); MAGNESIUM 1.4 mg/dL (1.8-2.4); PHOSPHORUS 3.4 mg/dL (2.5-4.9); POTASSIUM 4.4 mmol/L (3.5-5.1)
[2020-03-26 07:45] VITALS: BP 123/50
--- NOTE | 2020-03-26 10:21 | NUR ---
ASSUMED CARE OF PT AT 0715. PT IS A&OX3. IS APHASIC. USES COMMUNICATION SHEETS TO COMMUNICATE CONCERNS & ANSWERS YES & NO QUESTIONS ALSO. HAS RIGHT SIDED HEMIPLEGIA WITH EDEMA. TUBIGRIP IN PLACE TO UPPER & LOWER EXTREMITY. TO BE REMOVED AT HS. PT HAS SKIN TEAR TO RIGHT ELBOW. GUAZE & ABD INTACT. PT HAS REDDENED AREA ON BOTTOM. BARRIER OINTMENT APPLIED. Q2 HOUR TURNS. PT IS UP WITH 1 ASSIST, GB, STAND PIVOT TO TRANSFER. FALL PRECAUTIONS & HOURLY ROUNDING CONTINUED THIS SHIFT. LABS & VITALS REVIEWED PT IS STABLE. SPOUSE AT BEDSIDE. MCCLELLAN IN PLACE. PT IS UP IN W/C. CALL LIGHT IN REACH. ALARM ON. WILL CONTINUE TO MONITOR. PT WAS TO D/C TODAY. WILL STAY A COUPLE EXTRA DAYS THEN D/C.
--- NOTE | 2020-03-26 10:22 | NUR ---
cm notified by md, brand manager and [facility] nurse cabin cleaning supervisor that family has changed their mind and want to take him home know. pt will required dme nuwmotion wheel chair, hospital bed and other dme. new dcp for , will need 24 hr assistance at home and hh. [facility] updated liz. pt will still have the 30days from dc to admit skilled after dc home.
--- NOTE | 2020-03-26 15:48 | NUR ---
cm notified by many times, by bedside nurse, [facility] soft sugar supervisor and therapist and pt daughter called and asked for cm rn to call mom back. cm called [facility] back and education. on dcp to home. dme, pd, hh send referral to bashir, zoltan dow for dm mach.
[2020-03-26 19:37] VITALS: BP 102/41
[2020-03-26 21:25] VITALS: BP 118/67
--- NOTE | 2020-03-27 02:04 | NUR ---
PT ASSESSMENT COMPLETED AND VSS. MEDS GIVEN ORDERED AND TOLERATED. FALL PRECAUTIONS IN PLACE. MAX ASST TRANSFER FROM WHEELCHAIR TO BED. PRN TYLENOL HELPFUL FOR GENERALIZED DISCOMFORT. SAT WNL ON RA EVEN WITH SPOT CHECK. ASST WITH REPOSITION FOR COMFORT. MCCLELLAN DRAINING MODERATE AMOUNT OF YELLOW URINE. PT ENJOYED NECTOR THICK TEA. SNACK PROVIDED WITH LANTUS AND METFORMIN. SLEEPING WELL. WILL CONTINUE TO MONITOR FREQUENTLY. DAY ADOLPH ALCAZAR QUESTIONED MRSA ORDER FOR PT. JAMI BLANTON ASKED TO HAVE ORDER CLARIFIED IN THE MORNING AND HOLD TEST FOR NOW.
[2020-03-27 09:00] VITALS: BP 107/46; BP 114/45
--- NOTE | 2020-03-27 09:18 | NUR ---
cm called [facility] via phone call. education that a hh has accepted for hh and provided plus will complete hospital bed for dc on . cm re-education from yesterday phone call hospital bed is not like beds in hospital it is kim electric, head and feet electric and ht of bed is manual turn. " oh i don't not if you know but uvaldo henderson will be our nurse advocate and she said he been dm for 60 years and need a dm mattress. i am not doing well with keeping all this handled and org. i have 5 things going on, she going to help us. belen can call me or uvaldo about the mattress . uvaldo # [phone]. thank you for calling. i have appointment i have to go. i am still the primary contact"/ [facility]. cm passed on information to provider plus and pst manager at main office will call and discuss mattress with either or uvaldo. cm receive message letting cm know to contact uvaldo grimes nurse advocate navigator to get this ready for dc on 03/29/2020. family will still need to get private duty, hirer someone to remoble the bathrooms and pt stated yesterday they have already rented a wheel chair ramp.
--- NOTE | 2020-03-27 12:48 | NUR ---
team meeting, recommendation: diet mech soft with nectar thick. family needs. uvaldo assist family to get pd set up. possible will need deb lift and will need bsc with drop arm, hospital bed, wheel chair from [employer]. he will get loaner from [employer] wheel chair until other one comes in. possible will move dc back to allow more therapy there. after hh will need day program ability miguel a. unable to keep jacquie while all updates remodeling being down. coming in today for therapy and will need training with nurse on dm teaching.
--- NOTE | 2020-03-27 14:00 | NUR ---
PATIENTS FAMILY HAS HIRED A NURSE NAVIGATOR, ERIC BILLINGS, WHO IS ASSISTING WITH DC PLANNING. NM HAS CONTACTED ERIC THIS AFERNOON TO SET UP A SKYPE MEETING WITH HER, THE PATIENT'S , AND ANY FAMILY THAT IS INVOLVED IN THE DC PLAN, TO COORDINATE ALL PARTIES TOGETHER TO DEVELOP A CUSTOMIZED DC PLAN THAT MEETS THIS PATIENT'S COMPLEX NEEDS. WE WILL DISCUSS TRAINING OF FAMILY AND CAREGIVERS, DME, HOME HEALTH, AND OUTPATIENT PLANS FOLLOWING THE CONCLUSION OF THE HOME HEALTHCARE THERAPIES. TENTATIVE DC PLAN IS STILL THURSDAY, 03/[address] ROME, BUT PER DR. STORY, THIS IS FLUID, WE MUST ENSURE A SAFE DISCHARGE WITH ALL NEEDS MET.
--- NOTE | 2020-03-27 17:12 | NUR ---
PATIENT'S AND DAUGHTERS GENNA AND JESUS PARTICIPATED IN A SKYPE CALL WITH CAPRICE CARDENAS CM, CAPRICE AGARWAL NM, [facility] REHAB SERVICES DIRECTOR, INDU JOHNSON DIRECTOR OF CASE MANAGEMENT, AND ERIC BILLINGS NURSE NAVIGATOR. ALL ASPECTS OF THE DISCHARGE WERE DISCUSSED IN DETAIL FOLLOWS: NURSE NAVIGATOR ERIC WILL ASSESS THE HOME ENVIRONMENT TOMORROW AT 11AM TO SEE WHAT ADDITIONAL CHANGES OR EQUIPMENT NEED TO BE ORDERED TO ENSURE A SAFE TRANSITION TO HOME. DME THAT IS ALREADY IN PROCESS: [employer] WHEELCHAIR, HOSPITAL BED (WITH POSSIBLE SPECIALIZED MATTRESS IF PATIENT QUALIFIES), DROP-ARM BEDSIDE COMMODE, AND POSSIBLY A MIREYA LIFT, WELL A GLUCOMETER WITH TEST STRIPS AND SYRINGES AND LANCETS. PT'S BIRGIT STATED THAT SHE DOESN'T WANT A RAMP, BUT THE NURSE NAVIGATOR WILL ASSESS TOMORROW AND MAKE RECOMMENDATIONS REARDING THE SAFEST WAY TO GET PT IN AND OUT OF THE HOUSE IN THE EVENT OF AN EMERGENCY. HOME HEALTH [facility]OUGH [facility] IS BEING SET UP, AND PT WILL HAVE ALL 3 THERAPIES AND NURSING. PT'S 2 DAUGHTERS WILL COME IN THE NEXT 2 DAYS FOR FAMILY TRAINING PRIOR TO DC TO HOME ON THURSDAY. NURSING WILL TRAIN FAMILY IN INSULIN AND MONITORING BLOOD SUGARS. PATIENT WILL HAVE FOLLOW UP APPOINTMENTS AND FAMLY WILL HAVE TO SET THESE UP FOLLOWING DC TO HOME. NURSE RICHAATOR HAS A COMPANY THAT SHE TYPICALLY WORKS WITH FOR HOME CAREGIVERS, AND THIS PERSON IS TO MEET WITH BIRGIT TOMORROW. FAMILY AND NURSE NAVIGATOR WERE GIVEN THE OPPORTUNITY TO ASK QUESTIONS, AND ALL VERBALIZED THAT THEY UNDERSTOOD THE PLAN AND FELT THAT THE DC WAS GOING TO GO OK.
[2020-03-27 19:23] VITALS: BP 102/42
--- NOTE | 2020-03-27 20:52 | NUR ---
ASSUMED CARE OF PT AT 0700. PT IS A&OX4 AND VITAL SIGNS ARE STABLE. PT REPORTED CATHETER DISCOMFORT, AREA INSPECTED AND URETHRAL SORE NOTED. BARRIER CREAM APPLIED TO THE AREA AND TUBING REPOSITIONED. MCCLELLAN CATHETER IN PLACE AND DRAINING APPROPRIATELY. ACCU CHECKS ACHS. FALL PRECAUTIONS IN PLACE AND NURSING WILL CONTINUE TO MONITOR.
--- NOTE | 2020-03-28 00:23 | NUR ---
PT ASSESSMENT COMPLETED AND VSS. MEDS GIVEN ORDERED AND WELL TOLERATED. FALL PRECAUTIONS IN PLACE. MCCLELLAN DRAINING MODERATE AMOUNT OF YELLOW URINE. DRESSING ON R ARM DRY AND INTACT. ASST WITH REPOSITION FOR COMFORT USING PILLOWS. FUNGAL CREAM APPLIED TO BOTTOM AND GROIN. PT ENJOYED NECTOR THINK TEA AND A SMALL SNACK BEFORE BED. INSULIN GIVEN. SLEEPING WELL. WILL CONTINUE TO MONITOR FREQUENTLY.
[2020-03-28 07:50] VITALS: BP 106/38
--- NOTE | 2020-03-28 12:42 | NUR ---
DISCHARGE PLANNING: PATIENT'S BIRGIT STATED THAT PT'S HOME ALTERATIONS WILL NOT BE COMPLETED ON TIME FOR HIS SAFE DC ON THURSDAY. CAREGIVERS AND HOME SETTING WILL BE READY FOR THE PATIEN'S SAFE DC TO HOME ON THURSDAY, 03/30 AND SHE WOULD LIKE HIM TO BE AT THE HOME BETWEEN 10-11AM IF POSSIBLE TO MEET THE CAREGIVER. THIS INFORMATION WAS CONVEYED TO THE THERAPY TEAM AND THE DISCHARGE PLANNERS AND RN. PATIENT CONTINUES TO MAKE PROGRESS DAILY WITH THERAPIES, AND FAMILY TRAINING HAS GONE WELL THIS AM, AND IS SCHEDULED AGAIN TOMORROW AM WITH A DIFFERENT FAMILY MEMBER.
--- NOTE | 2020-03-28 13:04 | NUR ---
estelle spoke with uvaldo grimes nurse navigator outside hospital. " went to home from assessment and going to have to do dc home on thursday, when pd cg can be there with [facility] in home. furniture cant be moved until thursday. spoke with provider plus also."/uvaldo. estelle also notified from [facility] nurse scientific laboratory supervisor on dc thursday. will cont following as needed for dc need.
--- NOTE | 2020-03-28 13:07 | NUR ---
FAXED FACESHEET AND H/P TO ERIC BILLINGS OUTSIDE HOSPITAL NURSE ADVOCATOR RECEIVED CONFIRMATION.
[2020-03-28 20:01] VITALS: BP 106/35
--- NOTE | 2020-03-28 20:53 | NUR ---
ASSUMED CARE OF PT AT 0700. PT IS A&OX4 AND VITAL SIGNS ARE STABLE. PT REPORTS PAIN AT SITE OF CATHETER INSERTION, OINTMENT APPLIED TO AREA. ACCU CHECKS ACHS. MCCLELLAN CATHETER IN PLACE AND NURSING WILL CONTINUE TO MONITOR. FUNGAL CREAM APPLIED TO BUTTOCKS. WOUND TO ELBOW BLEEDING AND DRESSING CHANGED MULTIPLE TIMES DURING SHIFT. FALL PRECUAITONS IN PLACE AND NURSING WILL CONTIINUE TO MONITOR.
--- NOTE | 2020-03-29 02:58 | NUR ---
TO BED EARLIER THAN USUAL LAST EVENING, TRANSFERRING THERE WITH ASSIST OF 2. TOLERATING SIPS OF NECTAR THICK TEA. MCCLELLAN TO DD. ABLE TO COMMUNICATE WHEN TO ADJUST TEMPERATURE IN THE ROOM, ADDING BLANKET OR WHEN TO TURN FAN ON OR OFF.
[2020-03-29 08:05] VITALS: BP 112/50
--- NOTE | 2020-03-29 09:44 | NUR ---
RD RECS: *Recommend decreasing Glucerna oral supplements to only once daily, max of BID due to ongoing high BGs issues. *Each Glucerna shake provides 26 g CHO or 78 g CHO per day if doing all 3 as ordered. Pt is already eating very well; averaging 80% of meals the last 4 days.
--- NOTE | 2020-03-29 12:44 | NUR ---
Nutrition update: Visited w/ pt's spouse and pt's daughter during one of his therapy sessions to go over discharge diet education materials before discharge home tomorrow. Spent 20-30 minutes w/ family going over Renal Diabetic diet. Per EMR, renal issues appear acute in nature? denies any hx of kidney issues or CKD. Hyperkalemia documented as resolved, so very possible pt could just need diabetic diet for home. Educated on both diets, plus what nutrients are restricted on renal. See RD education note for further details. Pt dislikes the chalky taste of oral supplements here. has purchased low sugar [place] protein drink for home. RD encouraged her to limit these to just 1 a day if pt continues to eat well to limit effect on BGs. voiced great understanding of diet ed. All questions answered.
--- NOTE | 2020-03-29 15:36 | NUR ---
ASSUMED CARE AT 0700. PATIENT IS ALERT AND AWAKE. PATIENT HAS GLOBAL APHAGIA. PATIENT HAS RIGHT SIDED FLACCIDITY. LUNGS ARE CLEAR AND DEMINISHED. ABD IS SOFT WITH BSX4. PATIENT HAS MCCLELLAN TO DD, DRAINING BERENICE COLORED URINE. UP IN THE CHAIR FOR MEALS. FAMILY HERE FOR TRANINING. PLAN D/C TO HOME IN A.M. FALL AND SAFETY PROTOCOLS IN PLACE. DENIES PAIN. CONTINUES TO PROGRESS TOWARDS D/C GOALS. WILL CONTINUE TO MONITER.
--- NOTE | 2020-03-29 16:46 | NUR ---
per jacquie hill he pcp is dr devin berry do # [phone]. will need [facility] set up for 10 - 11 03/30/2020. so pt home when caregivers are in home.
--- NOTE | 2020-03-29 17:20 | NUR ---
PT DISCHARGING TOMORROW TO HOME WITH HH ARRANGED TRANSPORT WITH [facility] BY [facility]ICCI KIM AND MICHAEL 02 FOR 1000 IN THE MORNING 03/30.
[2020-03-29 19:43] VITALS: BP 106/42
--- NOTE | 2020-03-30 03:46 | NUR ---
assumed care approx 1900 evening 03/29. pt sitting up in recliner at change of shift. nickerson to dd with clear yellow urine to bag. pt given hs meds crushed and in applesauce tolerating well. pt assist x2 to toilet and bed. pt appears to be sleeping soundly with hourly rounding. bed alarm on and call light in reach. will continue to monitor.
[2020-03-30 06:46] LABS: ABSOLUTE NEUTROPHILS 4.6 thou/uL (1.4-8.2); BASOPHILS 0.6 % (0.0-2.0); HEMATOCRIT 30.1 % (42.0-52.0); HEMOGLOBIN 9.9 gm/dL (14.0-18.0); LYMPHOCYTES 14.2 % (24.0-44.0); MCH 32.1 pg (26.0-34.0); MCHC 33.1 g/dL (28.0-37.0); PLATELET COUNT 179 thou/uL (150-400); POLYS 73.2 % (36.0-66.0); RDW 17.4 % (10.5-14.5); WBC 6.3 thou/uL (4.0-11.0)
[2020-03-30 07:04] LABS: CALCIUM 8.4 mg/dL (8.5-10.1); CREATININE 1.3 mg/dL (0.7-1.3); MAGNESIUM 1.7 mg/dL (1.8-2.4); POTASSIUM 4.8 mmol/L (3.5-5.1)
[2020-03-30 07:50] VITALS: BP 103/43
[2020-03-30] MEDS ORDERED: TRADJENTA5 MG PO ×3 (08:10→10:23)
[2020-03-30] MEDS ORDERED: NEURONTIN 300M300 M2 PO ×3 (08:10→10:23)
[2020-03-30] MEDS ORDERED: PLAVIX 75 MG TA75 M1 PO ×3 (08:10→10:23)
[2020-03-30] MEDS ORDERED: LANTUS100 UNIT/M SUBQ ×3 (08:10→10:23)
[2020-03-30] MEDS ORDERED: PACERONE 200 M200 M1 PO ×3 (08:10→10:23)
[2020-03-30] MEDS ORDERED: PEPCID20 MG PO ×3 (08:10→10:23)
[2020-03-30] MEDS ORDERED: METOPROLOL TART25 MG PO ×3 (08:10→10:23)
[2020-03-30] MEDS ORDERED: METFORMIN HCL500 MG PO ×3 (08:10→10:23)
[2020-03-30] MEDS ORDERED: REMERON 30 MG T30 M1 PO ×3 (08:10→10:23)
[2020-03-30] MEDS ORDERED: MAGOX 400400 MG PO ×3 (08:10→10:23)
[2020-03-30] MEDS ORDERED: TYLENOL325 MG PO (08:10)
[2020-03-30] MEDS ORDERED: NOVOLOG100 UNIT/1 SUBQ ×6 (08:10→10:23)
--- NOTE | 2020-03-30 09:37 | NUR ---
ASSUMED CARES AT 0700. PT AWAKE AND ORIENTED*4, SEVERE APHASIA. DENIES PAIN. VITALS REMAIN STABLE. PT CONTINUES TO HAVE RIGHT SIDED WEAKNESS, UP WITH 1 MOD TO MAX ASSIST AND TOLERATED WELL. SKIN TEAR ON RIGHT ELBOW HEALING, DRESSING CHANGED. MCCLELLAN CATHETER REMAINS INTACT AND PATENT, URINE IS YELLOW AND CLEAR WITH NO FOUL ODOR. PT TO DC THIS AM TO HOME WITH HH, [facility]ORT TO PICK PATIENT AT 10. Q1H VISUAL CHECKS. CALL LIGHT WITHIN REACH. FALL PRECAUTIONS IN PLACE
[2020-03-30] MEDS ORDERED: LIPITOR40 MG PO ×2 (09:53→10:23)
[2020-03-30] MEDS ORDERED: FLOMAX0.4 MG PO ×2 (09:53→10:23)
--- NOTE | 2020-03-30 11:23 | NUR ---
PT DISCHARGING TO HOME WITH [facility] FAXED DC ORDERS/SUMMARY RECEIVED CONFIRMATION THEY WILL NOTIFY PT TO SET UP VISITS.
--- NOTE | 2020-04-02 12:09 | NUR ---
[facility] call dir of physical therapy requested call back. cm called her back let her know that fax dc order to a on thursday and got confirmation on 03/30/2020 " well they said they did not get it"/. cm team faxed dc orders again. " i ordered his thickener is not going to be in till thursday, need to see if can get some more from hospital, i have not been thicken it as much because going to run out"/[facility]. cm education that would have st call her and can get it at [facility], [facility] and [facility]. " have call and they don't have any"/. cm spoke with speech therapy to call .
--- NOTE | 2020-04-02 15:56 | NUR ---
WAS NOTIFIED BY [facility] THAT THEY DID NOT RECEIV HH ORDERS ON FRIDAY 03/30 SO REFAXED DC ORDERS AND SPOKE WITH ALEKSANDR IN INTAKE SHE RECEIVED ORDERS AND WILL NOTIFY PT TIME OF VISITS.
== END 2020-03-30 10:19 | disposition home health service (06) | DRG 56 ==
PROVIDERS: Internal Medicine; Nurse Practitioner; Nurse Practitioner Family; ADMIT Physical Medicine & Rehabilitation; ATTEND Physical Medicine & Rehabilitation
DX: I69.351 Hemiplegia and hemiparesis following cerebral infarction affecting right dominant side (principal); I63.9 Cerebral infarction, unspecified; I21.4 Non-ST elevation (NSTEMI) myocardial infarction; E43 Unspecified severe protein-calorie malnutrition; E87.1 Hypo-osmolality and hyponatremia; I47.2 Ventricular tachycardia; N17.9 Acute kidney failure, unspecified; R47.01 Aphasia; I48.91 Unspecified atrial fibrillation; I10 Essential (primary) hypertension; E11.9 Type 2 diabetes mellitus without complications; E78.5 Hyperlipidemia, unspecified; R47.1 Dysarthria and anarthria; Z20.828 Contact with and (suspected) exposure to other viral communicable diseases; R41.9 Unspecified symptoms and signs involving cognitive functions and awareness; I25.10 Atherosclerotic heart disease of native coronary artery without angina pectoris; N40.0 Benign prostatic hyperplasia without lower urinary tract symptoms; I49.5 Sick sinus syndrome; I35.0 Nonrheumatic aortic (valve) stenosis; E87.6 Hypokalemia; R13.10 Dysphagia, unspecified; Z66 Do not resuscitate; M10.9 Gout, unspecified; I80.9 Phlebitis and thrombophlebitis of unspecified site; N31.9 Neuromuscular dysfunction of bladder, unspecified; I25.2 Old myocardial infarction; Z87.891 Personal history of nicotine dependence; Z95.0 Presence of cardiac pacemaker; Z95.1 Presence of aortocoronary bypass graft; Z79.4 Long term (current) use of insulin; Z79.82 Long term (current) use of aspirin; Z79.899 Other long term (current) drug therapy; Z68.25 Body mass index [BMI] 25.0-25.9, adult
CPT/HCPCS: 10112

== ENCOUNTER 2020-04-13 15:57 | Inpatient (IN) | payer OTHER, MEDICARE ==
[~2020-04-13] VITALS: Ht 177.8 cm; Wt 74.4 kg
[~2020-04-13 15:57] MED LIST: ASPIR 8181 MG PO; ENOXAPARIN40 MG/0.1 SUBQ; FLOMAX0.4 MG PO; LANTUS SUBQ; LANTUS100 UNIT/M SUBQ; LIPITOR40 MG PO; LOPRESSOR50 PO; MAGOX 400400 MG PO; METFORMIN HCL500 MG PO; METOPROLOL TART25 MG PO; NEURONTIN 300M300 M2 PO; NOVOLOG100 UNIT/1 SUBQ; PACERONE 200 M200 M1 PO; PEPCID20 MG PO; PLAVIX 75 MG TA75 M1 PO; REMERON 30 MG T30 M1 PO; TRADJENTA5 MG PO; TYLENOL325 MG PO
[2020-04-13 16:02] VITALS: BP 121/37
[2020-04-13 17:41] LABS: ABSOLUTE NEUTROPHILS 3.2 thou/uL (1.4-8.2); BASOPHILS 0.9 % (0.0-2.0); EOSINOPHILS 2.5 % (0.0-3.0); LYMPHOCYTES 18.1 % (24.0-44.0); MCH 31.4 pg (26.0-34.0); MCHC 32.3 g/dL (28.0-37.0); MCV 97.3 fL (80.0-100.0); MONOCYTES 11.8 % (1.0-8.0); PLATELET COUNT 223 thou/uL (150-400); POLYS 66.7 % (36.0-66.0); RBC 3.18 mil/uL (4.50-6.00); RDW 17.3 % (10.5-14.5); WBC 4.7 thou/uL (4.0-11.0)
[2020-04-13 17:42] LABS: CALCIUM 8.6 mg/dL (8.5-10.1); CREATININE 1.1 mg/dL (0.7-1.3); POTASSIUM 4.2 mmol/L (3.5-5.1)
[2020-04-13 17:52] LABS: ALBUMIN 2.6 g/dL (3.4-5.0); DIRECT BILIRUBIN 0.1 mg/dL (<0.1-0.2); TOTAL BILIRUBIN 0.4 mg/dL (0.2-1.0); TOTAL PROTEIN 6.9 g/dL (6.4-8.2); TROPONIN-I 0.14 ng/mL (<0.06)
[2020-04-13] MEDS ORDERED: INSULIN LI100 UNIT/2 SUBQ (19:28)
[2020-04-13] MEDS ORDERED: LANTUS SOL100 UNIT/1 SUBQ (19:29)
[2020-04-14] VITALS (8 sets, daily range): BP systolic 97–135; BP diastolic 39–57
[2020-04-14 00:02] LABS: CALCIUM 8.6 mg/dL (8.5-10.1); CREATININE 1.2 mg/dL (0.7-1.3); POTASSIUM 4.3 mmol/L (3.5-5.1)
[2020-04-14 00:08] LABS: ALBUMIN 2.4 g/dL (3.4-5.0); TOTAL BILIRUBIN 0.5 mg/dL (0.2-1.0); TOTAL PROTEIN 6.3 g/dL (6.4-8.2)
--- NOTE | 2020-04-14 04:44 | NUR ---
PT ARRIVED TO UNIT APPROX 0045, ADMISSION AND ASSESSMENT COMPLETED. 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 COMMUNICATES USING THUMBS UP FOR YES AND THUMBS DOWN FOR NO, BUT STILL ISN'T ALWAYS EASY TO UNDERSTAND WHAT HE WANTS. PER NOTE FROM HIS , HE IS ABLE TO FEED HIMSELF WITH HIS LEFT HAND, IS ON [facility] SOFT DIET W/ NECTAR LIQUIDS, HE LIKES THE NECTAR ICE TEA BUT DISLIKES THE LEMON WATER, TAKES PILLS CRUSHED IN PUDDING, DIABETIC AND SUGARS TEND TO BE VERY HIGH WHILE IN THE HOSPITAL. WAS ON 2L NC WHEN BROUGHT UP BY ER, BUT SAT WAS ONLY 88%, INCREASED TO 3.5L FOR SAT 93%. LUNGS COARSE WITH SOME CRACKLES. AV-PACED ON TELE W/ BBB. HAS 3 SMALL PRESSURE SORES: RIGHT ELBOW, SACRUM, AND POSTERIOR RIGHT THIGH, SEE WOUND DOCUMENTATION. NO OTHER CONCERNS, WILL CONTINUE TO MONITOR.
[2020-04-14 06:41] LABS: HEMATOCRIT 31.2 % (42.0-52.0); HEMOGLOBIN 10.1 gm/dL (14.0-18.0); MCH 31.5 pg (26.0-34.0); MCHC 32.3 g/dL (28.0-37.0); MCV 97.4 fL (80.0-100.0); RBC 3.2 mil/uL (4.50-6.00); RDW 17.4 % (10.5-14.5)
[2020-04-14 06:43] LABS: CALCIUM 8.4 mg/dL (8.5-10.1); CREATININE 0.9 mg/dL (0.7-1.3); POTASSIUM 4.2 mmol/L (3.5-5.1)
--- NOTE | 2020-04-14 10:45 | EKG ---
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: esheets : 1945 Requested By: Xochitl Torres Order Number: [id number] MD: Duane Person Measurements Intervals [place] Rate: 60 P: -78 AR: 190 QRS: -83 QRSD: 155 T: 120 QT: 487 QTc: 487 Interpretive Statements Atrial-ventricular dual-paced rhythm No further analysis attempted due to paced rhythm Compared to ECG 02/23/2020 07:57:49 Ventricular premature complex(es) no longer present Myocardial infarct finding no longer present Electronically Signed On 04-14-2020 10:45:18 CDT by Duane Person [email or web address] <ELECTRONICALLY SIGNED> By: Duane Person MD 04/14/20 1045 32 32 Duane Person MD /EPI
--- NOTE | 2020-04-14 12:54 | NUR ---
ASSUMED PATIENT CARE THIS AM AT APPROXIMATELY 0700. PATIENT AWAKE ALERT. WITH EXPRESSIVE APHASIA AND UNABLE TO COMMUNICATE NEEDS VERBALLY, YES/NO QUESTIONS ASKED, GESTURES AND POINTS TO WHAT HE NEEDS. PATIENT TURNED Q2H AND PRN. OFFLOADED BILATERAL HEELS. SPOKE WITH PATIENT REGARDING PATIENT CARE. ALL QUESTIONS ANSWERED AT THIS TIME
--- NOTE | 2020-04-14 16:48 | NUR ---
PATIENT COVID RESULTED NEGATIVE THIS SHIFT. ATTEMPTED TO MAKE INFECTION CONTROL NURSE AWARE, NO RESPSONSE, SPOKE WITH PAINT ROLLER ASSEMBLER FOR NEXT STEPS, AWAITING CALL BACK WITH ORDERS. INFORMED PATIENT OF FIRST NEGATIVE RESULT, NO ORDERS TO D/C ISOLATION YET. WILL CALL TO MAKE AWARE WHEN ORDERS ARE RECIEVED. PATIENT BLOOD GLUCOSE REMAINS ELEVATED GREATER THAN 300 THIS SHIFT. SLIDING SCALE INCREASED TO MODERATE SCALE AT [address] ELLIS MADE AWARE. PATIENT TURNED IN BED Q2H AND TOLERATED WELL. HEELS OFFLOADED AT ALL TIMES. TOLERATING DIET WELL. O2 SAT STABLE ON 3LNC.
--- NOTE | 2020-04-15 01:26 | NUR ---
PT RESTING QUIETLY AFTER REPOSITIONING. VSS AFEBRILE. DRESSINGS REMAIN INTACT TO WOUNDS. NO S/S DISTRESS.
[2020-04-15 04:47] VITALS: BP 91/38
[2020-04-15 04:48] VITALS: BP 97/39
--- NOTE | 2020-04-15 05:19 | NUR ---
NOTIFIED SAUNDRA JEAN OF BP . HELD LASIX ORDERED.
[2020-04-15 06:01] LABS: HEMATOCRIT 30.1 % (42.0-52.0); HEMOGLOBIN 9.7 gm/dL (14.0-18.0); MCH 31.3 pg (26.0-34.0); MCHC 32.2 g/dL (28.0-37.0); MCV 97.2 fL (80.0-100.0); PLATELET COUNT 229 thou/uL (150-400); RBC 3.09 mil/uL (4.50-6.00); RDW 16.8 % (10.5-14.5); WBC 5.9 thou/uL (4.0-11.0)
[2020-04-15 07:49] VITALS: BP 111/42
[2020-04-15 09:55] LABS: ABSOLUTE NEUTROPHILS 3.7 thou/uL (1.4-8.2); ANISOCYTOSIS 1+; OVALOCYTES 1+
[2020-04-15 09:56] LABS: POIKILOCYTOSIS SLIGHT
[2020-04-15 11:05] VITALS: BP 102/46
--- NOTE | 2020-04-15 14:07 | NUR ---
ASSUMED PATIENT CARE THIS AM AT APPROXIMATELY 0700. PATIENT SLEEPING IN BED. O2 SAT STABLE ON 2LNC AT THIS TIME. CARDIO MD TO SEE PATIENT THIS AM. ORDERS GIVEN TO CHANGE LASIX TO DAILY. INFORMED OF HOLDING MEDS, LASIX AND METOPROLOL LAST NIGHT/SQUEAK RATTLE AND LEAK REPAIRER BECAUSE OF LOW BP, SPOKE WITH PATIENT TODAY REGARDING PLAN TO D/C TO ANOTHER FLOOR WHEN A ROOM IS AVALIABLE. STATES UNDERSTANDING OF PLAN. PATIENT TURNED IN BED Q2H AND BILATERAL HEELS OFFLOADED. RIGHT ARM ELEVATED ON PILLOW.
[2020-04-15 15:15] VITALS: BP 111/44
[2020-04-15 19:39] VITALS: BP 102/38
--- NOTE | 2020-04-16 03:42 | NUR ---
Patient making slow progress towards outcome goals. Vital signs and rhythm stable. Denies pain. Maintaining 1500 fluid restrictions/24 hours. Communication difficult at times due to aphasia but patient is oriented.
[2020-04-16 05:09] VITALS: BP 104/43
[2020-04-16 05:43] LABS: HEMOGLOBIN 10.8 gm/dL (14.0-18.0); MCH 31.1 pg (26.0-34.0); MCHC 31.9 g/dL (28.0-37.0); MCV 97.6 fL (80.0-100.0); RBC 3.49 mil/uL (4.50-6.00); RDW 17.2 % (10.5-14.5); WBC 5.5 thou/uL (4.0-11.0)
[2020-04-16 05:48] LABS: CALCIUM 8.6 mg/dL (8.5-10.1); CREATININE 1.2 mg/dL (0.7-1.3); POTASSIUM 3.8 mmol/L (3.5-5.1)
[2020-04-16 07:24] VITALS: BP 114/45
--- NOTE | 2020-04-16 10:04 | NUR ---
WOUND CARE CONSULT; ASSESSED WOUNDS W/ MANAGER OF HOUSEKEEPING FLAVIO PT ALERT BUT APHASIA, COOPERATIVE, SKIN TEAR ABRASION R ELBOW, CLOSED, NO DRAINAGE, SCABBED WOUND R POSTERIOR THIGH, NO DRAINAGE, AKI AREA SACRUM, INCONT STOOL. NO OPEN AREAS, NO S/S INFECTION ANY WOUNDS, HEELS INTACT, LOW AIR LOSS PUMP APPLIED TO BED, SEE PROCESS INTERVENTION FOR WOUND DETAILS, PHOTOS ON CHART RECOMMENDATIONS; LOW AIR LOSS PUMP TO BED, ENCOURAGE TURNING, PRESSURE RELIEF. OFF LOADING, BORDER FOAM DRSG TO R ELBOW AND R POSTERIOR THIGH, ZGUARD TO SACRAL AREA DAILY AND PRN MANAGER OF HOUSEKEEPING AWARE
[2020-04-16 16:46] VITALS: BP 106/47
--- NOTE | 2020-04-16 16:47 | NUR ---
INITIAL ASSESSMENT: Received consult. HOWARD reviewed chart and spoke with nursing and attending physician. Pt was admitted from home due to CHF/shortness of breath. Pt placed in Enhanced Isolation to r/o COVID-19. Pt was recently discharged from [address] to home with [facility] on 03/30. PT/OT ordered to evaluate pt for discharge needs. HOWARD spoke with pt's , Irene, via phone. Introduced role of HOWARD. Pt and spouse live at home. Pt has [facility] HH and private duty in place. Pt has a hospital bed and DME. Pt's interested in getting a full electric bed. HOWARD notified [facility] liaison to follow up with pt's about alternate options. Discharge plan is for pt to return home and resume HH and private duty services. Pt's states that they have home O2 in place through [facility]. HOWARD updated Mary in intake at [facility]. Will fax info/COVID test results tomorrow. HOWARD is following to assist as needed with discharge planning.
--- NOTE | 2020-04-16 17:25 | NUR ---
PT IS VERY FRUSTRATED OVER MEALS...NEEDS HEAVY ASSIST TO SET UP TRAY..
[2020-04-16 19:23] VITALS: BP 87/40
[2020-04-16 20:30] VITALS: BP 104/47; BP 107/47
--- NOTE | 2020-04-16 23:02 | NUR ---
PT ALERT. MAKES INCOMPREHENSIBLE SOUNDS. FOLLOWS COMMANDS APPROPRIATELY. BP LOW IN THE 80'S. NOTIFIED SAUNDRA JEAN. BP CHECKED 1 HR LATER AFTER GIVING PT TEA AND THICKENED WATER. BP BETTER 107/47. HELD METOPROLOL . AV PACED ON THE MONITOR. WILL CONTINUE TO MONITOR PT FOR CAHNGES. DRESSINGS INTACT.
[2020-04-16 23:24] VITALS: BP 100/40
--- NOTE | 2020-04-16 23:55 | NUR ---
PT RESTING QUIETLY. REOSITIONED PT ZGARD APPLIED TO SACRAL WOUND. NO S/S DISTRESS. VSS.
[2020-04-17 03:59] VITALS: BP 99/39
[2020-04-17 05:00] LABS: CALCIUM 8.6 mg/dL (8.5-10.1); CREATININE 1.3 mg/dL (0.7-1.3); POTASSIUM 3.7 mmol/L (3.5-5.1)
[2020-04-17 07:10] VITALS: BP 107/46
[2020-04-17] MEDS ORDERED: AUGMENTIN 875-1 EACH PO (08:41)
[2020-04-17] MEDS ORDERED: DEMADEX20 MG PO (08:41)
[2020-04-17 09:11] VITALS: BP 107/46
--- NOTE | 2020-04-17 09:21 | NUR ---
DISCHARGE NOTE: HOWARD reviewed chart and spoke with nursing and attending physician. Pt is medically stable for discharge today. Discharge orders for HH obtained. Pt to resume HH services with [facility]. HOWARD spoke with pt's , Irene, via phone to provide update and notify of discharge orders. Irene is agreeable with plan. [facility] to applications support analyst pt at 1200 today at the ER entrance. Pt's family uses [facility] for medical appointments. HOWARD faxed clinical info, COVID test results and discharge orders/summary to [facility] and spoke with Tammie in intake to notify of pt's discharge orders. [facility] to contact family to arrange start of care. Contact info for [facility] placed in pt's discharge summary. HOWARD requested [facility] liaison to contact pt's , to discuss alternate hospital beds/mattresses. No additional SW needs identified at this time, but is available to assist should needs arise.
[2020-04-17 10:07] VITALS: BP 107/46
--- NOTE | 2020-04-17 14:34 | NUR ---
ASSUMED PATIENT CARE THIS SHIFT AT APPROXIMATELY 0700. PATIENT AWAKE ALERT ORIENTED, OFF ISOLATION. PATIENT RESPIRATIONS AND EFFORT OF BREATHING WNL. NO DISTRESS NOTED AT THIS TIME. O2 SAT STABLE ON 3LNC. ASSESSMENTS AND MEDS CHARTED. PATIENT TOLERATING MEALS AND BLOOD GLUCOSE STABLE. ORDERS FOR DC HOME OBTAINED TODAY. CALLED PATIENT BIRGIT TO GIVE DISCHARGE INSTRUCTIONS AND MAKE AWARE OF DC. EDUCATED PATIENT REGARDING NEW RX AND THEY WERE SENT TO PREFERRED PHARMACY.EDUCATION GIVEN REGARDING CARE FOR CHF. PATIENT STATES UNDERSTANDING OF ALL TEACHING GIVEN AT THIS TIME. IV SALINE LOCK REMOVED AND PATIENT TOLERATED WELL. HELICOPTER SPECIALIST REMOVED AND RETURNED TO STATION. PATIENT TAKEN OFF UNIT BY TRANSPORTER VIA OWN PERSONAL WHEELCHAIR WITH O2 AT 3LNC.
== END 2020-04-17 12:50 | disposition home health service (06) | DRG 291 ==
LOC: ER 15:57 → EROBS 20:03 → 3W 20:03
PROVIDERS: Emergency Medicine; Nurse Practitioner Adult Health; Nurse Practitioner Family; ADMIT Hospitalist; ATTEND Hospitalist
DX: I11.0 Hypertensive heart disease with heart failure (principal); J18.9 Pneumonia, unspecified organism; I69.351 Hemiplegia and hemiparesis following cerebral infarction affecting right dominant side; I50.23 Acute on chronic systolic (congestive) heart failure; R79.89 Other specified abnormal findings of blood chemistry; Z20.828 Contact with and (suspected) exposure to other viral communicable diseases; E11.9 Type 2 diabetes mellitus without complications; I25.10 Atherosclerotic heart disease of native coronary artery without angina pectoris; I49.5 Sick sinus syndrome; I35.0 Nonrheumatic aortic (valve) stenosis; Z66 Do not resuscitate; I48.0 Paroxysmal atrial fibrillation; E78.5 Hyperlipidemia, unspecified; Z79.4 Long term (current) use of insulin; I25.2 Old myocardial infarction; Z95.0 Presence of cardiac pacemaker; Z95.2 Presence of prosthetic heart valve; Z87.891 Personal history of nicotine dependence; I69.320 Aphasia following cerebral infarction; Z95.1 Presence of aortocoronary bypass graft; I69.321 Dysphasia following cerebral infarction; Z79.82 Long term (current) use of aspirin; Z79.899 Other long term (current) drug therapy
CPT/HCPCS: 10879